=== PATIENT | female | born 1940 | race African-American/Black ===

== ENCOUNTER 2017-11-06 11:50 | Inpatient (IN) | payer OTHER ==
[2017-11-06 12:16] VITALS: BMI 32.5
--- NOTE | 2017-11-06 13:12 | PDOC ---
History of Present Illness - General Chief Complaint: Seizure Stated Complaint: Seizure Time Seen by Provider: 11/06/17 12:33 - History of Present Illness Initial Comments: patient is a 76 year old female, with a significant past medical history of HTN , COPD, schizophrenia, DM1, seizure disorder, who presents to the emergency department after seizure at [facility] this AM. Pt with prior seizure disorder, currently on Diastat and keppra. Unable to obtain extensive hx as pt remains disoriented and lethargic in post-ictal state. Pt states she remembers getting up in the AM and eating breakfast, but cannot recall any other events from AM. Denies any pain or new neuro symptoms. 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 Pt noted to be hypoxic to low 80s in field, placed on NRB with correction to 100% sats. Per nursing staff at [facility], pt normally well controlled on regimen of keppra/ diastat. Recently had breakthrough generalized tonic-clonic seizure yesterday, lasting 3-4 mins with no tongue biting or urinary incontinence. Pt with similar seizure this morning at 11AM, with no noted emesis, incontinence or tongue biting. Pt compliant with all meds; keppra increased from 500 BID to 750 BID overnight due to breakthrough seizure. Per nursing, pt with no infectious symptoms. Unable to determine Pt's neurologist. No noted recent trauma. Patient denies chest pain, shortness of breath, headache or dizziness. Denies fever, chills, nausea, vomiting, diarrhea and constipation. Denies dysuria, frequency, urgency and hematuria. Allergies: levaquin, motrin, penicillin Past surgical history: Unknown Social History: Unknown 11/06/17 13:11 Past History - Past Medical History Allergies/Adverse Reactions: Allergies Allergy/AdvReac Type Severity Reaction Status Date / Time ibuprofen [From Motrin] Allergy Verified 11/06/17 13:53 levofloxacin [From Levaquin] Allergy Verified 11/06/17 13:53 Penicillins Allergy Verified 11/06/17 13:53 Home Medications: Ambulatory Orders Acetaminophen [Pain Relief] 650 mg PO HS 11/06/17 Benztropine Mesylate 1 mg PO BID 11/06/17 Beta-Carotene(A) W-C and E/Min [Ocuvite (Nf) -] 1 tab PO DAILY 11/06/17 Ca/D3/Mag Ox/Zinc/Tray Casting Machine Operator/Shaggy/Bor [Calcium 600-D3 Plus Caplet] 1 each PO BID Carbidopa/Levodopa 25/100 [Sinemet 25/100 -] 1 each PO TID 11/06/17 Collagenase Clostridium Hist. [Santyl] 250 units TP DAILY PRN 11/06/17 Diazepam [Diastat Acudial] 10 mg RC QID 11/06/17 Epoetin Vinod [Procrit] 40,000 unit IJ WEEKLY 11/06/17 Ferrous Sulfate 325 mg PO DAILY 11/06/17 Fluticasone/Salmeterol [Advair 250-50 Diskus] 1 puff IH BID 11/06/17 Furosemide [Lasix -] 40 mg PO DAILY 11/06/17 Haloperidol Decanoate [Haldol Decanoate 50] 50 mg IM MONTHLY 11/06/17 Insulin Lispro [Humalog] 100 unit SQ ASDIR 11/06/17 Ranitidine [Zantac -] 150 mg PO BID 11/06/17 Sennosides/Docusate Sodium [Senna-Docusate Sodium Tablet] 2 tab PO BID 11/06/17 Simvastatin 20 mg PO HS 11/06/17 Vit A/Vitamin D3/E/Aloe V/Zinc [Periguard Ointment] 100 gm TP ASDIR 11/06/17 levETIRAcetam [Keppra -] 250 mg PO BID 11/06/17 levETIRAcetam [Keppra -] 500 mg PO BID 11/06/17 CVA: Yes COPD: Yes HTN: Yes Psychiatric Problems: Yes (schizophrenia) Seizures: Yes - Immunization History Immunization Up to Date: Yes - Suicide/Smoking/Psychosocial Hx Smoking History: Unknown if ever smoked Have you smoked in the past 12 months: No Information on smoking cessation initiated: No Hx Alcohol Use: No Drug/Substance Use Hx: No Substance Use Type: None Review of Systems - Review of Systems Comments:: Limited due to mental status GENERAL/CONSTITUTIONAL: No fever or chills. No weakness. HEAD, EYES, EARS, NOSE AND THROAT: No change in vision. CARDIOVASCULAR: No chest pain or shortness of breath RESPIRATORY: No cough GASTROINTESTINAL: No nausea, vomiting, diarrhea GENITOURINARY: No dysuria NEUROLOGIC: +LOC; no FNDs 11/06/17 13:11 *Physical Exam - Vital Signs Last Vital Signs Temp Pulse Resp BP Pulse Ox 96.8 F L 85 16 137/77 100 11/06/17 11:50 11/06/17 11:50 11/06/17 11:50 11/06/17 11:50 11/06/17 11:50 - Physical Exam Comments: GENERAL: Elderly woman, A&Ox2, in no acute distress, very somnolent HEAD: No signs of trauma, normocephalic, atraumatic. Dried foodstuff noted at L labial fold. EYES: PERRLA, EOMI, sclera anicteric, conjunctiva clear ENT: Auricles normal inspection, hearing grossly normal, nares patent, oropharynx clear without exudates. Moist mucosa NECK: Normal ROM, supple, no lymphadenopathy, JVD, or masses LUNGS: No distress, speaks full sentences, clear to auscultation bilaterally HEART: Regular rate and rhythm, normal S1 and S2, no murmurs, rubs or gallops, peripheral pulses normal and equal bilaterally. ABDOMEN: Soft, nontender, normoactive bowel sounds. No guarding, no rebound. No masses EXTREMITIES : Normal inspection, Normal range of motion, no edema. No clubbing or cyanosis. NEUROLOGICAL: Difficult to perform given MS. Cranial nerves II through XII grossly intact. Decreased palpebral strength in L eye. 3/5 strength in L technical marketing consultant, arm flexion/extension at biceps. 5/5 strength grossly in LEs. Moderately delayed speech. 11/06/17 13:11 ED Treatment Course - LABORATORY CBC & Chemistry Diagram: 11/12/17 05:30 11/10/17 11:40 Medical Decision Making - Medical Decision Making 76 year old female, with a significant past medical history of HTN, COPD, schizophrenia, DM1, seizure disorder, who presents to the emergency department after seizure at [facility] this AM. DDX for breakthrough seizure includes medication noncompliance, infectious etiology, trauma, metabolic derangement. Plan: - obtain collateral from [facility] - cbc, cmp, lactic acid, PT/INR, blood cultures - UA - CXR, EKG - Keppra level - Cardiac monitoring, pulse ox - Non con CT head 11/06/17 13:49 UA + for 3+ leuk esterase, WBCs; Hgb 8.8, Cr ; no further episodes of seizure; ordered for Rocephin 1g x1; discussed case with Dr. Ferreira, will admit to non- cardiac telemetry 11/06/17 17:[address] negative for acute pathology 11/06/17 17:12 *DC/Admit/Observation/Transfer Diagnosis at time of Disposition: Seizure - Discharge Dispostion Disposition: [facility]ISON FACILITY - Referrals - Patient Instructions - Post Discharge Activity
[2017-11-06 13:59] LABS: HEMOGLOBIN 8.8 GM/dL (10.7-15.3); MCHC 31.9 g/dl (32.0-36.0); WHITE BLOOD COUNT 7.3 K/mm3 (4.0-10.0)
[2017-11-06 14:05] LABS: BASO % 0.8 % (0-2.0); EOS % 1.1 % (0-4.5); HEMATOCRIT 27.7 % (32.4-45.2); LYMPH % 19.1 % (8-40); MCH 25.3 pg (25.7-33.7); MEAN CELL VOLUME 79.4 fl (80-96); MEAN PLT VOLUME 8.1 fl (7.5-11.1); MONO % 6.4 % (3.8-10.2); NEUT % 72.6 % (42.8-82.8); PLATELET COUNT 288 K/MM3 (134-434); RBC 3.49 M/mm3 (3.60-5.2); RDW 20.6 % (11.6-15.6)
[2017-11-06 14:07] LABS: ADD RBC MORPHOLOGY YES
[2017-11-06 14:21] LABS: URINE APPEARANCE SLCLOUDY; URINE BILIRUBIN NEGATIVE (<2.0 mg/dL); URINE BLOOD 2+ (NEGATIVE); URINE COLOR YELLOW; URINE GLUCOSE (UA) NEGATIVE (NEGATIVE); URINE KETONE NEGATIVE (NEGATIVE); URINE NITRITE POSITIVE (NEGATIVE); URINE UROBILINOGEN NEGATIVE mg/dL (0.2-1.0)
[2017-11-06 14:23] LABS: ALK PHOS 97 U/L (45-117); ANION GAP 5 (8-16); BILIRUBIN,TOTAL 0.3 mg/dL (0.2-1.0); BLOOD UREA NITROGEN 26 mg/dL (7-18); CALCIUM 9.3 mg/dL (8.5-10.1); CHLORIDE 103 mmol/L (98-107); CO2 33 mmol/L (21-32); CREATININE 1.8 mg/dL (0.55-1.02); GLUCOSE,RANDOM 108 mg/dL (74-106); POTASSIUM 4.3 mmol/L (3.5-5.1); SGOT/AST 7 U/L (15-37); SGPT/ALT < 6 U/L (12-78); SODIUM 141 mmol/L (136-145)
[2017-11-06 14:26] LABS: URINE LEUK ESTERASE 3+ (NEGATIVE); URINE PROTEIN 2+ (NEGATIVE)
[2017-11-06 14:29] LABS: CALCIUM OXALATE CRYSTALS RARE /hpf (NONE SEEN); EPI CELLS FEW /HPF (FEW); URINE BACTERIA MODERATE /hpf (NONE SEEN); URINE MUCUS RARE
[2017-11-06 14:34] LABS: ANISOCYTOSIS 2+
[2017-11-06 14:35] LABS: PLATELET ESTIMATE ADEQUATE
[2017-11-06 14:36] LABS: INR 1.04 (0.82-1.09); PROTHROMBIN TIME (PATIENT) 11.7 SEC (9.7-13.0)
--- NOTE | 2017-11-06 15:32 | PDOC ---
Attending Attestation - Resident Resident Name: Dylon Crowe - ED Attending Attestation I have performed the following: I have examined & evaluated the patient, The case was reviewed & discussed with the resident, I agree w/resident's findings & plan, Exceptions are as noted - HPI HPI: 11/06/17 15:29 "The patient is a 76 year old female with a significant PMH of seizures (on Keppra & Diazepam), CVA with residual LUE weakness, COPD, HTN, diabetes and who presents to the emergency department from [facility] via EMS for evaluation of seizure this morning prior to arrival. As per [facility] staff, the patient had a seizure yesterday which lasted about 4 minutes, with no associated tongue biting or incontinence. They report she had a similar seizure this morning at about 11AM with no associated tongue biting or incontinence. They state she has been compliant with her medications and is typically well controlled. The patient states she only remembers getting up in the morning and eating breakfast. Pt denies any recent F/C. Denies N/V/D/abdominal pain. Denies dysuria. Denies CP/SOB. Allergies: NKA PCP: Dr. Addison Barrow " - Physicial Exam PE: 11/06/17 15:30 "GENERAL: Awake, alert, and fully oriented, in no acute distress. HEAD: No signs of trauma EYES: PERRLA, EOMI, sclera anicteric, conjunctiva clear ENT: Auricles normal inspection, hearing grossly normal, nares patent, oropharynx clear without exudates. Moist mucosa NECK: Nontender, no stepoffs, Normal ROM, supple, no lymphadenopathy, JVD, or masses LUNGS: Breath sounds equal, clear to auscultation bilaterally. No wheezes, and no crackles HEART: Regular rate and rhythm, normal S1 and S2, no murmurs, rubs or gallops ABDOMEN: Soft, nontender, normoactive bowel sounds. No guarding, no rebound. No masses EXTREMITIES: Normal range of motion, no edema. No clubbing or cyanosis. No cords , erythema, or tenderness NEUROLOGICAL: Cranial nerves II through XII intact. 5/5 strength and sensation in all extremities, Normal speech, normal gait, normal cerebellar function SKIN: Warm, Dry, normal turgor, no rashes or lesions noted. " - Medical Decision Making 11/06/17 15:31 76 F with increased seizure frequency with reported compliance with AEDs. Will evaluate for infectious process and metabolic derangement. Also r/o ICH with head CT. - Labs, UA, UCx - CXR - CT head
[2017-11-06] MEDS ORDERED: CEFTRIAXONE 1 GM in DEXTROSE 5%-WATER - 100 ML IVPB ONE (15:40)
[2017-11-06] MEDS ORDERED: CEFTRIAXONE 1 GM/50 ML BAG ONE (15:47)
[2017-11-06] MEDS: SODIUM CHLORIDE 1,000 ML IV SCH (17:35)
--- NOTE | 2017-11-06 20:27 | HP ---
Admitting History and Physical - Primary Care Physician PCP: Shari Ferreira - Smoking History Smoking history: Unknown if ever smoked Have you smoked in the past 12 months: No - Alcohol/Substance Use Hx Alcohol Use: No Home Medications - Allergies Allergies/Adverse Reactions: Allergies Allergy/AdvReac Type Severity Reaction Status Date / Time ibuprofen [From Motrin] Allergy Verified 11/06/17 13:53 levofloxacin [From Levaquin] Allergy Verified 11/06/17 13:53 Penicillins Allergy Verified 11/06/17 13:53 - Home Medications Home Medications: Ambulatory Orders Acetaminophen [Pain Relief] 650 mg PO HS 11/06/17 Benztropine Mesylate 1 mg PO BID 11/06/17 Beta-Carotene(A) W-C and E/Min [Ocuvite (Nf)] 1 tab PO DAILY 11/06/17 Ca/D3/Mag Ox/Zinc/Medical Record Librarians Teacher/Shaggy/Bor [Calcium 600+D3 Plus Caplet] 1 each PO BID Carbidopa/Levodopa 25/100 [Sinemet 25/100 -] 1 each PO TID 11/06/17 Collagenase Clostridium Hist. [Santyl] 250 units TP DAILY PRN 11/06/17 Diazepam [Diastat Acudial] 10 mg RC QID 11/06/17 Epoetin Vinod [Procrit] 40,000 unit IJ WEEKLY 11/06/17 Ferrous Sulfate 325 mg PO DAILY 11/06/17 Fluticasone/Salmeterol [Advair 250-50 Diskus] 1 puff IH BID 11/06/17 Furosemide [Lasix -] 40 mg PO DAILY 11/06/17 Haloperidol Decanoate [Haldol Decanoate 50] 50 mg IM MONTHLY 11/06/17 Insulin Lispro [Humalog] 100 unit SQ ASDIR 11/06/17 Ranitidine [Zantac -] 150 mg PO BID 11/06/17 Sennosides/Docusate Sodium [Senna-Docusate Sodium Tablet] 2 tab PO BID 11/06/17 Simvastatin 20 mg PO HS 11/06/17 Vit A/Vitamin D3/E/Aloe V/Zinc [Periguard Ointment] 100 gm TP ASDIR 11/06/17 levETIRAcetam [Keppra -] 250 mg PO BID 05/28/18 levETIRAcetam [Keppra -] 500 mg PO BID 11/06/17 Physical Examination Vital Signs: Vital Signs Temperature 96.8 F L 11/06/17 11:50 Pulse Rate 88 11/06/17 19:25 Respiratory Rate 17 11/06/17 19:25 Blood Pressure 127/61 11/06/17 19:25 O2 Sat by Pulse Oximetry (%) 100 11/06/17 19:25 Labs: CBC, BMP 11/06/17 13:23 11/06/17 13:23
--- NOTE | 2017-11-06 20:30 | HP ---
Admitting History and Physical - Primary Care Physician PCP: Shari Ferreira - Admission History of Present Illness: 76 year old female with a significant PMH of seizures (on Keppra & Diazepam), CVA with residual LUE weakness, COPD, HTN, diabetes and who presents to the emergency department from [facility] via EMS for evaluation of seizure this morning prior to arrival. As per [facility] staff, the patient had a seizure yesterday which lasted about 4 minutes, with no associated tongue biting or incontinence. They report she had a similar seizure this morning at about 11AM with no associated tongue biting or incontinence. They state she has been compliant with her medications and is typically well controlled. The patient states she only remembers getting up in the morning and eating breakfast. Pt denies any recent F/C. Denies N/V/D/abdominal pain. Denies dysuria. Denies CP/ SOB. 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 Cardiovascular: Yes: HTN Pulmonary: Yes: COPD Endocrine: Yes: Diabetes Mellitus - Smoking History Smoking history: Unknown if ever smoked Have you smoked in the past 12 months: No - Alcohol/Substance Use Hx Alcohol Use: No Home Medications - Allergies Allergies/Adverse Reactions: Allergies Allergy/AdvReac Type Severity Reaction Status Date / Time ibuprofen [From Motrin] Allergy Verified 11/06/17 13:53 levofloxacin [From Levaquin] Allergy Verified 11/06/17 13:53 Penicillins Allergy Verified 11/06/17 13:53 - Home Medications Home Medications: Ambulatory Orders Acetaminophen [Pain Relief] 650 mg PO HS 11/06/17 Benztropine Mesylate 1 mg PO BID 11/06/17 Beta-Carotene(A) W-C and E/Min [Ocuvite (Nf)] 1 tab PO DAILY 11/06/17 Ca/D3/Mag Ox/Zinc/Motorcoach Driver/Shaggy/Bor [Calcium 600+D3 Plus Caplet] 1 each PO BID Carbidopa/Levodopa 25/100 [Sinemet 25/100 -] 1 each PO TID 11/06/17 Collagenase Clostridium Hist. [Santyl] 250 units TP DAILY PRN 11/06/17 Diazepam [Diastat Acudial] 10 mg RC QID 11/06/17 Epoetin Vinod [Procrit] 40,000 unit IJ WEEKLY 11/06/17 Ferrous Sulfate 325 mg PO DAILY 11/06/17 Fluticasone/Salmeterol [Advair 250-50 Diskus] 1 puff IH BID 11/06/17 Furosemide [Lasix -] 40 mg PO DAILY 11/06/17 Haloperidol Decanoate [Haldol Decanoate 50] 50 mg IM MONTHLY 11/06/17 Insulin Lispro [Humalog] 100 unit SQ ASDIR 11/06/17 Ranitidine [Zantac -] 150 mg PO BID 11/06/17 Sennosides/Docusate Sodium [Senna-Docusate Sodium Tablet] 2 tab PO BID 11/06/17 Simvastatin 20 mg PO HS 11/06/17 Vit A/Vitamin D3/E/Aloe V/Zinc [Periguard Ointment] 100 gm TP ASDIR 11/06/17 levETIRAcetam [Keppra -] 250 mg PO BID 11/06/17 levETIRAcetam [Keppra -] 500 mg PO BID 11/06/17 Physical Examination Vital Signs: Vital Signs Temperature 96.8 F L 11/06/17 11:50 Pulse Rate 88 11/06/17 19:25 Respiratory Rate 17 11/06/17 19:25 Blood Pressure 127/61 11/06/17 19:25 O2 Sat by Pulse Oximetry (%) 100 11/06/17 19:25 Constitutional: Yes: No Distress HENT: Yes: Atraumatic Neck: Yes: Supple Cardiovascular: Yes: Regular Rate and Rhythm Respiratory: Yes: CTA Bilaterally Gastrointestinal: Yes: Normal Bowel Sounds Extremities: Yes: WNL Edema: No Peripheral Pulses WNL: Yes Peripheral Pulses: Right Radial: 0 Neurological: Yes: Alert, Oriented Labs: CBC, BMP 11/06/17 13:23 11/06/17 13:23 Problem List - Problems (1) UTI (urinary tract infection) Assessment/Plan: on iv abx cxs sent id on board Code(s): N39.0 - URINARY TRACT INFECTION, SITE NOT SPECIFIED (2) Seizure Assessment/Plan: on keppra neuro on board stable now Code(s): R56.9 - UNSPECIFIED CONVULSIONS Assessment/Plan Laboratory Tests 11/06/17 11/06/17 11/06/17 13:23 13:23 13:23 WBC 7.3 RBC 3.49 L Hgb 8.8 L Hct 27.7 L MCV 79.4 L MCH 25.3 L MCHC 31.9 L RDW 20.6 H Plt Count 288 MPV 8.1 Neutrophils % 72.6 Lymphocytes % 19.1 Monocytes % 6.4 Eosinophils % 1.1 Basophils % 0.8 Nucleated RBC % 0 Hypochromia 1+ Platelet Estimate Adequate Platelet Comment No clotting detected Polychromasia 1+ Anisocytosis 2+ Microcytosis 1+ Fragmented RBCs Occasional PT with INR 11.70 INR 1.04 Sodium 141 Potassium 4.3 Chloride 103 Carbon Dioxide 33 H Anion Gap 5 L BUN 26 H Creatinine 1.8 H Creat Clearance w eGFR 27.36 Random Glucose 108 H Lactic Acid Calcium 9.3 Total Bilirubin 0.3 AST 7 L ALT < 6 L Alkaline Phosphatase 97 Total Protein 7.0 Albumin 2.0 L Urine Color Urine Appearance Urine pH Ur Specific [place] Urine Protein Urine Glucose (UA) Urine Ketones Urine Blood Urine Nitrite Urine Bilirubin Urine Urobilinogen Ur Leukocyte Esterase Urine WBC (Auto) Urine RBC (Auto) Ur Epithelial Cells Calcium Oxalate Crystal Urine Bacteria Urine Mucus 11/06/17 11/06/17 13:30 14:10 WBC RBC Hgb Hct MCV MCH MCHC RDW Plt Count MPV Neutrophils % Lymphocytes % Monocytes % Eosinophils % Basophils % Nucleated RBC % Hypochromia Platelet Estimate Platelet Comment Polychromasia Anisocytosis Microcytosis Fragmented RBCs PT with INR INR Sodium Potassium Chloride Carbon Dioxide Anion Gap BUN Creatinine Creat Clearance w eGFR Random Glucose Lactic Acid 1.0 Calcium Total Bilirubin AST ALT Alkaline Phosphatase Total Protein Albumin Urine Color Yellow Urine Appearance Slcloudy Urine pH 5.0 Ur Specific [place] 1.013 Urine Protein 2+ H Urine Glucose (UA) Negative Urine Ketones Negative Urine Blood 2+ H Urine Nitrite Positive Urine Bilirubin Negative Urine Urobilinogen Negative Ur Leukocyte Esterase 3+ H Urine WBC (Auto) 80 Urine RBC (Auto) 15 Ur Epithelial Cells Few Calcium Oxalate Crystal Rare Urine Bacteria Moderate Urine Mucus Rare Active Medications Generic Name Dose Route Start Last Admin Trade Name Freq PRN Reason Stop Dose Admin Sodium Chloride 1,000 mls @ 100 mls/hr 11/06/17 17:15 11/06/17 17:35 Normal Saline - IV 100 mls/hr ASDIR LUIS A Administration Active Medications Generic Name Dose Route Start Last Admin Trade Name Freq PRN Reason Stop Dose Admin Benztropine Mesylate 1 mg 11/06/17 22:00 Cogentin - PO BID [facility] Carbidopa/Levodopa 1 each 11/06/17 22:00 Sinemet 25/100 - PO TID [facility] Collagenase applic 11/06/17 20:31 Santyl - TP DAILY PRN [facility] Diazepam 10 mg 11/06/17 22:00 Diastat Rectal Gel - RC QID [facility] Furosemide 40 mg 11/07/17 10:00 Lasix - PO DAILY [facility] Heparin Sodium (Porcine) 5,000 unit 11/06/17 22:00 Heparin - SQ BID [facility] Sodium Chloride 1,000 mls @ 100 mls/hr 11/06/17 17:15 11/06/17 17:35 Normal Saline - IV 100 mls/hr ASDIR [facility] Administration Insulin Aspart 1 vial 11/06/17 22:00 Novolog Vial Sliding Scale - SQ ACHS [facility] Protocol Levetiracetam 250 mg 11/06/17 22:00 Keppra - PO BID [facility] Non-Formulary Medication 1 puff 11/06/17 22:00 Fluticasone/Salmeterol [Advair 250-50 Diskus] IH BID [facility] Non-Formulary Medication 20 mg 11/06/17 22:00 Simvastatin [Simvastatin] PO HS [facility] Ranitidine HCl 150 mg 11/06/17 22:00 Zantac - PO BID [facility] Senna/Docusate Sodium 2 tablet 11/06/17 22:00 Pericolace - PO BID [facility]
[2017-11-06] MEDS ORDERED: COLLAGENASE CLOSTRIDIUM HIST. 30 GRAMS TUBE TP PRN (20:31)
[2017-11-06] MEDS ORDERED: diazePAM ACUDIAL 5-7.5-10 MG 1 EACH KIT RC SCH (22:00)
[2017-11-06] MEDS ORDERED: PATIENT'S OWN MEDICATION (NON-FORMULARY) (Simvastatin [Simvastatin] 20 MG) PO SCH (22:00)
[2017-11-06] MEDS ORDERED: ACETAMINOPHEN 650 MG/20.3 ML ORAL SOLUTION (CUPS) PO PRN (22:20)
[2017-11-06] MEDS: levETIRAcetam 250 MG TABLET (FP) PO SCH (22:30)
[2017-11-06] MEDS: ATORVASTATIN CA 10 MG TABLET (FP) PO SCH (22:30)
[2017-11-06] MEDS: SENNOSIDES/DOCUSATE COMBO (SENNA PLUS) TABLET (UD) PO SCH (22:30)
[2017-11-06] MEDS: RANITIDINE HCL 150 MG TABLET (FP) PO SCH (22:31)
[2017-11-06] MEDS: BUDESONIDE/FORMETEROL FUMARATE 80/4.5 mcg INHALER IH SCH (22:31)
[2017-11-06] MEDS: HEPARIN NA (PORCINE) 5,000 UNITS/ML 1ML VIAL SQ SCH (22:31)
[2017-11-06] MEDS: BENZTROPINE MESYLATE 1 MG TABLET (FP) PO SCH (22:33)
[2017-11-06] MEDS: INSULIN SLIDING SCALE (NOVOLOG) 1 VIAL SQ SCH (22:42)
[2017-11-06] MEDS: CARBIDOPA/LEVODOPA 25/100 TABLET (FP) PO SCH (23:00)
[2017-11-07] MEDS: CARBIDOPA/LEVODOPA 25/100 TABLET (FP) PO SCH ×3 (05:57→22:02)
[2017-11-07] MEDS: INSULIN SLIDING SCALE (NOVOLOG) 1 VIAL SQ SCH ×4 (06:07→21:34)
[2017-11-07] MEDS: SENNOSIDES/DOCUSATE COMBO (SENNA PLUS) TABLET (UD) PO SCH ×2 (09:03→21:26)
[2017-11-07] MEDS: RANITIDINE HCL 150 MG TABLET (FP) PO SCH ×2 (09:03→21:26)
[2017-11-07] MEDS: HEPARIN NA (PORCINE) 5,000 UNITS/ML 1ML VIAL SQ SCH ×2 (09:03→21:26)
[2017-11-07] MEDS: levETIRAcetam 250 MG TABLET (FP) PO SCH ×2 (09:03→21:26)
[2017-11-07] MEDS: BUDESONIDE/FORMETEROL FUMARATE 80/4.5 mcg INHALER IH SCH ×2 (09:04→21:26)
[2017-11-07] MEDS: BENZTROPINE MESYLATE 1 MG TABLET (FP) PO SCH ×2 (09:04→22:02)
[2017-11-07] MEDS: FUROSEMIDE 40 MG TABLET (FP) PO SCH (09:09)
[2017-11-07] MEDS ORDERED: INSULIN (NOVOLOG) ASPART 100 UNITS/ML 10ML VIAL ONE ×2 (11:56→21:32)
--- NOTE | 2017-11-07 13:34 | EKG ---
Test Reason : Blood Pressure : / mmHG Vent. Rate : 083 BPM Atrial Rate : 083 BPM P-R Int : 148 ms QRS Dur : 070 ms QT Int : 370 ms P-R-T Axes : 076 017 032 degrees QTc Int : 434 ms POOR DATA QUALITY, INTERPRETATION MAY BE ADVERSELY AFFECTED NORMAL SINUS RHYTHM NORMAL ECG NO PREVIOUS ECGS AVAILABLE Confirmed by MD Daljit, Juan ([id number]) on 11/07/2017 1:34:06 PM Referred By: Confirmed By:Juan Bocanegra MD
--- NOTE | 2017-11-07 13:42 | CON.ID ---
Consult Consult Specialty:: infectious diseases Reason for Consultation:: uti,seizures - History of Present Illness History of Present Illness: 76 year old female with a significant PMH of seizures ), CVA with residual LUE weakness, COPD, HTN, diabetes send from [facility] via EMS for evaluation of seizure this morning prior to arrival. As per [facility] staff, the patient had a seizure yesterday which lasted about 4 minutes, with no associated tongue biting or incontinence. They report she had a similar seizure this morning at about 11AM with no associated tongue biting or incontinence. They state she has been compliant with her medications and is typically well controlled. patient does not remember much and what happened Pt noted to be hypoxic to low 80s in field, placed on NRB with correction to 100 % sats. 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 Cardio/Vascular: Yes: HTN Pulmonary: Yes: COPD Endocrine: Yes: Diabetes Mellitus - Alcohol/Substance Use Hx Alcohol Use: No - Smoking History Smoking history: Unknown if ever smoked Have you smoked in the past 12 months: No Home Medications - Allergies Allergies/Adverse Reactions: Allergies Allergy/AdvReac Type Severity Reaction Status Date / Time ibuprofen [From Motrin] Allergy Verified 11/06/17 13:53 levofloxacin [From Levaquin] Allergy Verified 11/06/17 13:53 Penicillins Allergy Verified 11/06/17 13:53 - Home Medications Home Medications: Ambulatory Orders Acetaminophen [Pain Relief] 650 mg PO HS 11/06/17 Benztropine Mesylate 1 mg PO BID 11/06/17 Beta-Carotene(A) W-C and E/Min [Ocuvite (Nf)] 1 tab PO DAILY 11/06/17 Ca/D3/Mag Ox/Zinc/Metal Alloy Scientist/Shaggy/Bor [Calcium 600+D3 Plus Caplet] 1 each PO BID Carbidopa/Levodopa 25/100 [Sinemet 25/100 -] 1 each PO TID 11/06/17 Collagenase Clostridium Hist. [Santyl] 250 units TP DAILY PRN 11/06/17 Diazepam [Diastat Acudial] 10 mg RC QID 11/06/17 Epoetin Vinod [Procrit] 40,000 unit IJ WEEKLY 11/06/17 Ferrous Sulfate 325 mg PO DAILY 11/06/17 Fluticasone/Salmeterol [Advair 250-50 Diskus] 1 puff IH BID 11/06/17 Furosemide [Lasix -] 40 mg PO DAILY 11/06/17 Haloperidol Decanoate [Haldol Decanoate 50] 50 mg IM MONTHLY 11/06/17 Insulin Lispro [Humalog] 100 unit SQ ASDIR 11/06/17 Ranitidine [Zantac -] 150 mg PO BID 11/06/17 Sennosides/Docusate Sodium [Senna-Docusate Sodium Tablet] 2 tab PO BID 11/06/17 Simvastatin 20 mg PO HS 11/06/17 Vit A/Vitamin D3/E/Aloe V/Zinc [Periguard Ointment] 100 gm TP ASDIR 11/06/17 levETIRAcetam [Keppra -] 250 mg PO BID 11/06/17 levETIRAcetam [Keppra -] 500 mg PO BID 11/06/17 Review of Systems Unable to obtain ROS, reason: unable Physical Exam Vital Signs: Vital Signs Temperature 98.8 F 11/07/17 08:43 Pulse Rate 99 H 11/07/17 08:43 Respiratory Rate 20 11/07/17 08:43 Blood Pressure 121/59 11/07/17 08:43 O2 Sat by Pulse Oximetry (%) 100 11/07/17 08:43 Constitutional: Yes: No Distress, Calm Eyes: Yes: Conjunctiva Clear Cardiovascular: Yes: Regular Rate and Rhythm Respiratory: Yes: Regular, CTA Bilaterally Gastrointestinal: Yes: Normal Bowel Sounds, Soft Musculoskeletal: Yes: WNL Extremities: Yes: WNL Neurological: Yes: Alert, Other Psychiatric: Yes: Alert Labs: CBC, BMP 11/06/17 13:23 11/06/17 13:23 Imaging - Results Chest X-ray: Report Reviewed, Image Reviewed Cat Scan: Report Reviewed, Image Reviewed Assessment/Plan pt. with hx. of sz.d/o, cva in past. , now admitted with a seizurex1, breakthrough likley provoked by uti that she is being treated for. i think her condition might have also been provoked by some infectious factor patient has been started on ceftriaxone Problem List - Problems (1) UTI (urinary tract infection) Code(s): N39.0 - URINARY TRACT INFECTION, SITE NOT SPECIFIED (2) Seizure Code(s): R56.9 - UNSPECIFIED CONVULSIONS plan continue ceftriaxone await for cx reports rest continue current mgmt await neuro to see the patient
--- NOTE | 2017-11-07 14:59 | PN ---
Progress Note, Physician History of Present Illness: doing well - Current Medication List Current Medications: Active Medications Acetaminophen (Tylenol Oral Solution -) 650 mg PO Q6H PRN PRN Reason: FEVER Atorvastatin Calcium (Lipitor -) 10 mg PO HS [facility] Last Admin: 11/06/17 22:30 Dose: 10 mg Benztropine Mesylate (Cogentin -) 1 mg PO BID [facility] Last Admin: 11/07/17 09:04 Dose: 1 mg Budesonide/Formoterol Fumarate (Symbicort 80/4.5mcg -) 2 puff IH BID [facility] Last Admin: 11/07/17 09:04 Dose: 2 puff Carbidopa/Levodopa (Sinemet 25/100 -) 1 each PO TID [facility] Last Admin: 11/07/17 13:35 Dose: 1 each Furosemide (Lasix -) 40 mg PO DAILY [facility] Last Admin: 11/07/17 09:09 Dose: 40 mg Heparin Sodium (Porcine) (Heparin -) 5,000 unit SQ BID [facility] Last Admin: 11/07/17 09:03 Dose: 5,000 unit Sodium Chloride (Normal Saline -) 1,000 mls @ 100 mls/hr IV ASDIR [facility] Last Admin: 11/06/17 17:35 Dose: 100 mls/hr Ceftriaxone Sodium 1 gm/ (Dextrose) 100 mls @ 200 mls/hr IVPB DAILY [facility]; Protocol Insulin Aspart (Novolog Vial Sliding Scale -) 1 vial SQ ACHS [facility]; Protocol Last Admin: 11/07/17 11:57 Dose: 2 units Levetiracetam (Keppra -) 250 mg PO BID [facility] Last Admin: 11/07/17 09:03 Dose: 250 mg Ranitidine HCl (Zantac -) 150 mg PO BID [facility] Last Admin: 11/07/17 09:03 Dose: 150 mg Senna/Docusate Sodium (Pericolace -) 2 tablet PO BID [facility] Last Admin: 11/07/17 09:03 Dose: 2 tablet - Objective Vital Signs: Vital Signs Temperature 98.8 F 11/07/17 08:43 Pulse Rate 99 H 11/07/17 08:43 Respiratory Rate 20 11/07/17 08:43 Blood Pressure 121/59 11/07/17 08:43 O2 Sat by Pulse Oximetry (%) 100 11/07/17 08:43 Constitutional: Yes: No Distress HENT: Yes: Atraumatic Neck: Yes: Supple Cardiovascular: Yes: Regular Rate and Rhythm Respiratory: Yes: CTA Bilaterally Gastrointestinal: Yes: Normal Bowel Sounds Extremities: Yes: WNL Neurological: Yes: Alert, Oriented Labs: CBC, BMP 11/06/17 13:23 11/06/17 13:23 INR, PTT INR 1.04 (0.82-1.09) 11/06/17 13:23 Problem List - Problems (1) UTI (urinary tract infection) Assessment/Plan: on iv abx cxs sent Code(s): N39.0 - URINARY TRACT INFECTION, SITE NOT SPECIFIED (2) Seizure Assessment/Plan: on keppra stable Code(s): R56.9 - UNSPECIFIED CONVULSIONS (3) Diarrhea Assessment/Plan: will check c diff Code(s): R19.7 - DIARRHEA, UNSPECIFIED
[2017-11-07] MEDS ORDERED: cefTRIAXone SODIUM 1 GM VIAL ONE (16:51)
[2017-11-07] MEDS ORDERED: DEXTROSE 5%-WATER 100 ML IVPB ONE (16:51)
[2017-11-07] MEDS: CEFTRIAXONE 1 GM in DEXTROSE 5%-WATER 100 ML IVPB SCH (16:54)
[2017-11-07] MEDS: SODIUM CHLORIDE 1,000 ML IV SCH ×2 (17:39→21:22)
--- NOTE | 2017-11-07 17:53 | CON.NEURO ---
Consult Consult Specialty:: NEUROLOGY-JESSICA ORTA Reason for Consultation:: Seizure - History of Present Illness History of Present Illness: patient is a 76 year old female, with a significant past medical history of HTN , COPD, schizophrenia, DM1, seizure disorder, who presents to the emergency department after seizure at [facility] this AM. Pt with prior seizure disorder, currently on Diastat and keppra. Unable to obtain extensive hx as pt remains disoriented and lethargic in post-ictal state. Pt states she remembers getting up in the AM and eating breakfast, but cannot recall any other events from AM. Denies any pain or new neuro symptoms. 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 Pt noted to be hypoxic to low 80s in field, placed on NRB with correction to 100% sats. She has been bed bound, unclear since when but has bilat LE and right UE weakness as per nursing staff. On Keppra 750mg bid. Per nursing staff at [facility], pt normally well controlled on regimen of keppra/ diastat. Recently had breakthrough generalized tonic-clonic seizure yesterday, lasting 3-4 mins with no tongue biting or urinary incontinence. Pt with similar seizure this morning at 11AM, with no noted emesis, incontinence or tongue biting. Pt compliant with all meds; keppra increased from 500 BID to 750 BID overnight due to breakthrough seizure. Per nursing, pt with no infectious symptoms. Unable to determine Pt's neurologist. No noted recent trauma. Patient denies chest pain, shortness of breath, headache or dizziness. Denies fever, chills, nausea, vomiting, diarrhea and constipation. 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 Cardio/Vascular: Yes: HTN Pulmonary: Yes: COPD Endocrine: Yes: Diabetes Mellitus - Alcohol/Substance Use Hx Alcohol Use: No - Smoking History Smoking history: Unknown if ever smoked Have you smoked in the past 12 months: No Home Medications - Allergies Allergies/Adverse Reactions: Allergies Allergy/AdvReac Type Severity Reaction Status Date / Time ibuprofen [From Motrin] Allergy Verified 11/06/17 13:53 levofloxacin [From Levaquin] Allergy Verified 11/06/17 13:53 Penicillins Allergy Verified 11/06/17 13:53 - Home Medications Home Medications: Ambulatory Orders Acetaminophen [Pain Relief] 650 mg PO HS 11/06/17 Benztropine Mesylate 1 mg PO BID 11/06/17 Beta-Carotene(A) W-C and E/Min [Ocuvite (Nf)] 1 tab PO DAILY 11/06/17 Ca/D3/Mag Ox/Zinc/Applications Architect/Shaggy/Bor [Calcium 600+D3 Plus Caplet] 1 each PO BID Carbidopa/Levodopa 25/100 [Sinemet 25/100 -] 1 each PO TID 11/06/17 Collagenase Clostridium Hist. [Santyl] 250 units TP DAILY PRN 11/06/17 Diazepam [Diastat Acudial] 10 mg RC QID 11/06/17 Epoetin Vinod [Procrit] 40,000 unit IJ WEEKLY 11/06/17 Ferrous Sulfate 325 mg PO DAILY 11/06/17 Fluticasone/Salmeterol [Advair 250-50 Diskus] 1 puff IH BID 11/06/17 Furosemide [Lasix -] 40 mg PO DAILY 11/06/17 Haloperidol Decanoate [Haldol Decanoate 50] 50 mg IM MONTHLY 11/06/17 Insulin Lispro [Humalog] 100 unit SQ ASDIR 11/06/17 Ranitidine [Zantac -] 150 mg PO BID 11/06/17 Sennosides/Docusate Sodium [Senna-Docusate Sodium Tablet] 2 tab PO BID 11/06/17 Simvastatin 20 mg PO HS 11/06/17 Vit A/Vitamin D3/E/Aloe V/Zinc [Periguard Ointment] 100 gm TP ASDIR 11/06/17 levETIRAcetam [Keppra -] 250 mg PO BID 11/06/17 levETIRAcetam [Keppra -] 500 mg PO BID 11/06/17 Physical Exam-Neuro Vital Signs: Vital Signs Temperature 97.8 F 11/07/17 14:00 Pulse Rate 110 H 11/07/17 14:00 Respiratory Rate 21 11/07/17 14:00 Blood Pressure 111/62 11/07/17 14:00 O2 Sat by Pulse Oximetry (%) 100 11/07/17 08:43 Labs: CBC, BMP 11/06/17 13:23 11/06/17 13:23 INR, PTT INR 1.04 (0.82-1.09) 05/28/18 13:23 - Neuro Exam Level Of Consciousness: Yes: Alert, Oriented to Person Eyes: Yes: EDGARDO (Vision appears impaired in both eyes- finger counting only, old ) Speech: WNL Dominant Hand: Right Mini Mental Exam: Impaired stm/att/conc. Follows one step commands. Sitting bup in bed, being fed dinner. Cranial Nerves II-XII Intact: No (slight old diminished left nlf.) DTR's: 0 Left Achilles (bilat knee jerks-1+), 0 Right Achilles, 1+ Left Bicep, 1 + Right Bicep, 1+ Left Tricep, 1+ Right Tricep, 1+ Left Brachioradialis, 1+ Right Brachioradialis Babinski: Absent Response to light touch: Normal Response to pain prick: Normal Motor Strength: 3/5: Left Leg, Right Leg, 4/5: Left Arm, Right Arm (right hand with flex contracture) Gait: Other (unable to stand) Imaging - Results Cat Scan: Report Reviewed (no acute changes, extensive chronic microvascular isch. 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 with hx. of sz.d/o, cva in past. She is on Keppra 750mg bid, now admitted with a seizurex1, breakthrough likley provoked by uti that she is being treated for. Would cont. Keppra at current dose and treat uti as provoking factor. Thank you, Tran Arvizu MD
[2017-11-07] MEDS ORDERED: PT OWN MED DRAWER 7, Y5N ONE (21:18)
[2017-11-07] MEDS: ATORVASTATIN CA 10 MG TABLET (FP) PO SCH (21:26)
[2017-11-08] MEDS ORDERED: LORazepam 2 MG/ML SDV VIAL ONE (02:44)
--- NOTE | 2017-11-08 02:46 | HOSP ---
Subjective - Review of Symptoms Subjective: called by nursing to evaluate pt on behalf of Dr. Ferreira. pt with tonic-clonic seizures repeatedly, multiple episodes while being examined. b/l upper extremities and lower extremities with convulsions. When subsided, pt smiles on command, following simple commands to raise arm, denies pain. able to say her name clearly, says she is at home. Physical Examination Vital Signs: Vital Signs HR140's, BP 160's/70's. BGM 90's. rectal temp 97.8F Constitutional: Yes: Moderate Distress Eyes: Yes: Conjunctiva Clear, EOM Intact, PERRL. No: Ptosis HENT: Yes: Atraumatic, Normocephalic Neck: Yes: Supple, Trachea Midline Cardiovascular: Yes: Tachycardia Respiratory: Yes: CTA Bilaterally Gastrointestinal: Yes: Soft Edema: No Neurological: Yes: Oriented (x1 to self), Facial Droop (chronic, residual from previous stroke) Labs: CBC, BMP 11/06/17 13:23 11/06/17 13:23 Hospitalist Encounter Assessment: 76 yr old woman with dementia, schizophrenia, seizure d/o, diabetes being treated for UTI likely causing breakthrough seizures. chart reviewed. pt has been evaluated by Neurology, note indicates pt should be on 750mg po bid of keppra. current EMR order shows 250mg bid po. Current seizure likely from low dose of keppra stat ativan 2mg IVpush given and loading dose of keppra 1g ivpb ordered. Outcome: pt's HR decreased and tonic-clonic movements resolved post-ativan. Recommendations/Interventions: Primary, Dr. Ferreira to f.u in the AM for further assessment. Recommend changing Keppra dose from 250mg to 750mg po BID and f.u keppra level Visit type - Emergency Visit Emergency Visit: No - New Patient This patient is new to me today: Yes Date on this admission: 11/08/17 - Critical Care Critical Care patient: No
[2017-11-08] MEDS ORDERED: levETIRAcetam 500 MG/5 ML INJECTION VIAL IVPB ONE (02:52)
[2017-11-08] MEDS: INSULIN SLIDING SCALE (NOVOLOG) 1 VIAL SQ SCH ×4 (06:28→21:49)
[2017-11-08] MEDS: CARBIDOPA/LEVODOPA 25/100 TABLET (FP) PO SCH ×3 (06:45→21:46)
[2017-11-08] MEDS: SODIUM CHLORIDE 1,000 ML IV SCH ×2 (06:46→21:44)
[2017-11-08 07:26] LABS: BASO % 1.1 % (0-2.0); EOS % 1.5 % (0-4.5); HEMATOCRIT 23.1 % (32.4-45.2); HEMOGLOBIN 7.4 GM/dL (10.7-15.3); LYMPH % 21.9 % (8-40); MCH 25.7 pg (25.7-33.7); MCHC 32.1 g/dl (32.0-36.0); MEAN CELL VOLUME 79.8 fl (80-96); MEAN PLT VOLUME 8.1 fl (7.5-11.1); MONO % 6.5 % (3.8-10.2); PLATELET COUNT 258 K/MM3 (134-434); RBC 2.89 M/mm3 (3.60-5.2); RDW 20.6 % (11.6-15.6); WHITE BLOOD COUNT 10.1 K/mm3 (4.0-10.0)
[2017-11-08 07:47] LABS: CHLORIDE 110 mmol/L (98-107); POTASSIUM 3.6 mmol/L (3.5-5.1); SODIUM 143 mmol/L (136-145)
[2017-11-08 07:56] LABS: ALBUMIN 1.9 g/dl (3.4-5.0); ALK PHOS 88 U/L (45-117); ANION GAP 7 (8-16); BILIRUBIN,TOTAL 0.3 mg/dL (0.2-1.0); BLOOD UREA NITROGEN 24 mg/dL (7-18); CALCIUM 8.4 mg/dL (8.5-10.1); CO2 26 mmol/L (21-32); CREATININE 1.8 mg/dL (0.55-1.02); GLUCOSE,RANDOM 84 mg/dL (74-106); SGOT/AST 6 U/L (15-37); SGPT/ALT < 6 U/L (12-78); TOT PROT 6.3 g/dl (6.4-8.2)
[2017-11-08] MEDS ORDERED: DEXTROSE 5%-WATER 100 ML IVPB ONE (09:34)
[2017-11-08] MEDS ORDERED: cefTRIAXone SODIUM 1 GM VIAL ONE (09:34)
[2017-11-08] MEDS ORDERED: PT OWN MED DRAWER 7, Y5N ONE ×2 (09:37→21:36)
[2017-11-08] MEDS: HEPARIN NA (PORCINE) 5,000 UNITS/ML 1ML VIAL SQ SCH ×2 (10:18→21:44)
[2017-11-08] MEDS: SENNOSIDES/DOCUSATE COMBO (SENNA PLUS) TABLET (UD) PO SCH ×2 (10:19→21:45)
[2017-11-08] MEDS: levETIRAcetam 250 MG TABLET (FP) PO SCH ×2 (10:19→21:45)
[2017-11-08] MEDS: RANITIDINE HCL 150 MG TABLET (FP) PO SCH ×2 (10:19→21:45)
[2017-11-08] MEDS: FUROSEMIDE 40 MG TABLET (FP) PO SCH (10:20)
[2017-11-08] MEDS: BENZTROPINE MESYLATE 1 MG TABLET (FP) PO SCH ×2 (10:20→21:46)
[2017-11-08] MEDS: CEFTRIAXONE 1 GM in DEXTROSE 5%-WATER 100 ML IVPB SCH (10:21)
--- NOTE | 2017-11-08 14:09 | PN ---
Progress Note, Physician History of Present Illness: patient had tremors currently no issues 'cx results noted calm - Current Medication List Current Medications: Active Medications Acetaminophen (Tylenol Oral Solution -) 650 mg PO Q6H PRN PRN Reason: FEVER Atorvastatin Calcium (Lipitor -) 10 mg PO HS [facility] Last Admin: 11/07/17 21:26 Dose: 10 mg Benztropine Mesylate (Cogentin -) 1 mg PO BID [facility] Last Admin: 11/08/17 10:20 Dose: 1 mg Budesonide/Formoterol Fumarate (Symbicort 80/4.5mcg -) 2 puff IH BID [facility] Last Admin: 11/07/17 21:26 Dose: 2 puff Carbidopa/Levodopa (Sinemet 25/100 -) 1 each PO TID [facility] Last Admin: 11/08/17 06:45 Dose: 1 each Furosemide (Lasix -) 40 mg PO DAILY [facility] Last Admin: 11/08/17 10:20 Dose: 40 mg Heparin Sodium (Porcine) (Heparin -) 5,000 unit SQ BID [facility] Last Admin: 11/08/17 10:18 Dose: 5,000 unit Sodium Chloride (Normal Saline -) 1,000 mls @ 100 mls/hr IV ASDIR [facility]PL[facility]ED [facility] Last Admin: 11/08/17 06:46 Dose: 100 mls/hr Ceftriaxone Sodium 1 gm/ (Dextrose) 100 mls @ 200 mls/hr IVPB DAILY [facility]; Protocol Last Admin: 11/08/17 10:21 Dose: 200 mls/hr Insulin Aspart (Novolog Vial Sliding Scale -) 1 vial SQ ACHS [facility]PL[facility]; Protocol Last Admin: 11/08/17 06:28 Dose: Not Given Levetiracetam (Keppra -) 250 mg PO BID [facility] Last Admin: 11/08/17 10:19 Dose: 250 mg Ranitidine HCl (Zantac -) 150 mg PO BID [facility] Last Admin: 11/08/17 10:19 Dose: 150 mg Senna/Docusate Sodium (Pericolace -) 2 tablet PO BID [facility] Last Admin: 11/08/17 10:19 Dose: 2 tablet - Objective Vital Signs: Vital Signs Temperature 98 F 11/08/17 10:30 Pulse Rate 97 H 11/08/17 10:30 Respiratory Rate 20 11/08/17 10:30 Blood Pressure 108/43 11/08/17 10:30 O2 Sat by Pulse Oximetry (%) 98 11/07/17 21:00 Constitutional: Yes: No Distress, Calm Cardiovascular: Yes: S1, S2 Respiratory: Yes: Regular, CTA Bilaterally Gastrointestinal: Yes: Normal Bowel Sounds, Soft Musculoskeletal: Yes: WNL Extremities: Yes: WNL Neurological: Yes: Alert Labs: CBC, BMP 11/08/17 06:30 11/08/17 06:30 INR, PTT INR 1.04 (0.82-1.09) 11/06/17 13:23 Assessment/Plan Problem List - Problems (1) UTI (urinary tract infection) Code(s): N39.0 - URINARY TRACT INFECTION, SITE NOT SPECIFIED (2) Seizure Code(s): R56.9 - UNSPECIFIED CONVULSIONS plan continue ceftriaxone as per neuro rest continue current mgmt monitor for seizures
[2017-11-08] MEDS: BUDESONIDE/FORMETEROL FUMARATE 80/4.5 mcg INHALER IH SCH ×2 (16:11→21:52)
--- NOTE | 2017-11-08 18:48 | PN ---
Progress Note, Physician - Current Medication List Current Medications: Active Medications Acetaminophen (Tylenol Oral Solution -) 650 mg PO Q6H PRN PRN Reason: FEVER Atorvastatin Calcium (Lipitor -) 10 mg PO HS [facility] Last Admin: 11/07/17 21:26 Dose: 10 mg Benztropine Mesylate (Cogentin -) 1 mg PO BID [facility] Last Admin: 11/08/17 10:20 Dose: 1 mg Budesonide/Formoterol Fumarate (Symbicort 80/4.5mcg -) 2 puff IH BID [facility] Last Admin: 11/08/17 16:11 Dose: Not Given Carbidopa/Levodopa (Sinemet 25/100 -) 1 each PO TID [facility] Last Admin: 11/08/17 16:10 Dose: Not Given Furosemide (Lasix -) 40 mg PO DAILY [facility] Last Admin: 11/08/17 10:20 Dose: 40 mg Heparin Sodium (Porcine) (Heparin -) 5,000 unit SQ BID [facility] Last Admin: 11/08/17 10:18 Dose: 5,000 unit Sodium Chloride (Normal Saline -) 1,000 mls @ 100 mls/hr IV ASDIR [facility] Last Admin: 11/08/17 06:46 Dose: 100 mls/hr Ceftriaxone Sodium 1 gm/ (Dextrose) 100 mls @ 200 mls/hr IVPB DAILY [facility]; Protocol Last Admin: 11/08/17 10:21 Dose: 200 mls/hr Insulin Aspart (Novolog Vial Sliding Scale -) 1 vial SQ ACHS [facility]; Protocol Last Admin: 11/08/17 18:04 Dose: 2 units Levetiracetam (Keppra -) 250 mg PO BID [facility] Last Admin: 11/08/17 10:19 Dose: 250 mg Ranitidine HCl (Zantac -) 150 mg PO BID [facility] Last Admin: 11/08/17 10:19 Dose: 150 mg Senna/Docusate Sodium (Pericolace -) 2 tablet PO BID [facility] Last Admin: 11/08/17 10:19 Dose: 2 tablet - Objective Vital Signs: Vital Signs Temperature 97.8 F 11/08/17 16:29 Pulse Rate 98 H 11/08/17 16:29 Respiratory Rate 20 11/08/17 16:29 Blood Pressure 131/69 11/08/17 16:29 O2 Sat by Pulse Oximetry (%) 98 11/08/17 11:00 Constitutional: Yes: Calm HENT: Yes: Atraumatic Neck: Yes: Supple Cardiovascular: Yes: Regular Rate and Rhythm Respiratory: Yes: CTA Bilaterally Gastrointestinal: Yes: Normal Bowel Sounds Extremities: Yes: WNL Neurological: Yes: Alert, Oriented Labs: CBC, BMP 11/08/17 06:30 11/08/17 06:30 INR, PTT INR 1.04 (0.82-1.09) 11/06/17 13:23 Problem List - Problems (1) UTI (urinary tract infection) Assessment/Plan: on iv abx cxs noted Code(s): N39.0 - URINARY TRACT INFECTION, SITE NOT SPECIFIED (2) Seizure Assessment/Plan: on keppra stable Code(s): R56.9 - UNSPECIFIED CONVULSIONS (3) Diarrhea Assessment/Plan: will check c diff Code(s): R19.7 - DIARRHEA, UNSPECIFIED
[2017-11-08] MEDS: ATORVASTATIN CA 10 MG TABLET (FP) PO SCH (21:45)
[2017-11-09] MEDS: CARBIDOPA/LEVODOPA 25/100 TABLET (FP) PO SCH ×3 (06:43→23:06)
[2017-11-09] MEDS: INSULIN SLIDING SCALE (NOVOLOG) 1 VIAL SQ SCH ×4 (06:43→23:00)
[2017-11-09 10:09] LABS: HEMATOCRIT 21.5 % (32.4-45.2); WHITE BLOOD COUNT 6.8 K/mm3 (4.0-10.0)
[2017-11-09 10:12] LABS: MCH 24.6 pg (25.7-33.7); MCHC 31.3 g/dl (32.0-36.0); MEAN CELL VOLUME 78.8 fl (80-96); MEAN PLT VOLUME 8.1 fl (7.5-11.1); PLATELET COUNT 278 K/MM3 (134-434); RBC 2.73 M/mm3 (3.60-5.2); RDW 20.4 % (11.6-15.6)
[2017-11-09 10:23] LABS: HEMOGLOBIN 6.8 GM/dL (10.7-15.3)
[2017-11-09 10:24] LABS: BLOOD UREA NITROGEN 19 mg/dL (7-18)
[2017-11-09 10:26] LABS: ALBUMIN 1.7 g/dl (3.4-5.0); ANION GAP 7 (8-16); CALCIUM 8.3 mg/dL (8.5-10.1); CHLORIDE 112 mmol/L (98-107); CO2 25 mmol/L (21-32); GLUCOSE,RANDOM 83 mg/dL (74-106); POTASSIUM 3.5 mmol/L (3.5-5.1); SODIUM 144 mmol/L (136-145)
[2017-11-09 10:31] LABS: ALK PHOS 85 U/L (45-117); BILIRUBIN,TOTAL 0.2 mg/dL (0.2-1.0); CREATININE 1.7 mg/dL (0.55-1.02); SGOT/AST 8 U/L (15-37); SGPT/ALT < 6 U/L (12-78); TOT PROT 5.9 g/dl (6.4-8.2)
--- NOTE | 2017-11-09 16:45 | PN ---
Progress Note, Physician History of Present Illness: stable had twitching neuro on case - Current Medication List Current Medications: Active Medications Acetaminophen (Tylenol Oral Solution -) 650 mg PO Q6H PRN PRN Reason: FEVER Atorvastatin Calcium (Lipitor -) 10 mg PO HS [facility] Last Admin: 11/08/17 21:45 Dose: 10 mg Benztropine Mesylate (Cogentin -) 1 mg PO BID [facility] Last Admin: 11/08/17 21:46 Dose: 1 mg Budesonide/Formoterol Fumarate (Symbicort 80/4.5mcg -) 2 puff IH BID [facility] Last Admin: 11/08/17 21:52 Dose: 2 puff Carbidopa/Levodopa (Sinemet 25/100 -) 1 each PO TID [facility] Last Admin: 11/09/17 06:43 Dose: 1 each Furosemide (Lasix -) 40 mg PO DAILY [facility] Last Admin: 11/08/17 10:20 Dose: 40 mg Heparin Sodium (Porcine) (Heparin -) 5,000 unit SQ BID [facility] Last Admin: 11/08/17 21:44 Dose: 5,000 unit Sodium Chloride (Normal Saline -) 1,000 mls @ 100 mls/hr IV ASDIR [facility] Last Admin: 11/08/17 21:44 Dose: 100 mls/hr Ceftriaxone Sodium 1 gm/ (Dextrose) 100 mls @ 200 mls/hr IVPB DAILY [facility]; Protocol Last Admin: 11/08/17 10:21 Dose: 200 mls/hr Insulin Aspart (Novolog Vial Sliding Scale -) 1 vial SQ ACHS [facility]; Protocol Last Admin: 11/09/17 06:43 Dose: Not Given Levetiracetam (Keppra -) 250 mg PO BID [facility] Last Admin: 11/08/17 21:45 Dose: 250 mg Ranitidine HCl (Zantac -) 150 mg PO BID [facility] Last Admin: 11/08/17 21:45 Dose: 150 mg Senna/Docusate Sodium (Pericolace -) 2 tablet PO BID [facility] Last Admin: 11/08/17 21:45 Dose: 2 tablet - Objective Vital Signs: Vital Signs Temperature 98.4 F 11/09/17 14:30 Pulse Rate 83 11/09/17 14:30 Respiratory Rate 20 11/09/17 14:30 Blood Pressure 153/68 11/09/17 14:30 O2 Sat by Pulse Oximetry (%) 96 11/09/17 09:00 Constitutional: Yes: No Distress, Calm Cardiovascular: Yes: Regular Rate and Rhythm Respiratory: Yes: Regular, CTA Bilaterally Gastrointestinal: Yes: Normal Bowel Sounds, Soft Musculoskeletal: Yes: WNL Extremities: Yes: Other Neurological: Yes: Alert, Weakness (on left side), Other Labs: CBC, BMP 11/09/17 09:45 11/09/17 09:45 INR, PTT INR 1.04 (0.82-1.09) 11/06/17 13:23 Assessment/Plan Problem List - Problems (1) UTI (urinary tract infection) Code(s): N39.0 - URINARY TRACT INFECTION, SITE NOT SPECIFIED (2) Seizure Code(s): R56.9 - UNSPECIFIED CONVULSIONS plan continue ceftriaxone as per neuro rest continue current mgmt monitor for seizures
[2017-11-09] MEDS ORDERED: cefTRIAXone SODIUM 1 GM VIAL ONE ×2 (17:09→17:10)
[2017-11-09] MEDS ORDERED: DEXTROSE 5%-WATER 100 ML IVPB ONE (17:10)
[2017-11-09] MEDS: CEFTRIAXONE 1 GM in DEXTROSE 5%-WATER 100 ML IVPB SCH (17:19)
[2017-11-09] MEDS: BENZTROPINE MESYLATE 1 MG TABLET (FP) PO SCH ×2 (17:19→23:05)
[2017-11-09] MEDS: levETIRAcetam 250 MG TABLET (FP) PO SCH ×2 (17:20→23:01)
[2017-11-09] MEDS: HEPARIN NA (PORCINE) 5,000 UNITS/ML 1ML VIAL SQ SCH ×2 (17:20→19:52)
[2017-11-09] MEDS: SENNOSIDES/DOCUSATE COMBO (SENNA PLUS) TABLET (UD) PO SCH ×2 (17:21→23:05)
[2017-11-09] MEDS: FUROSEMIDE 40 MG TABLET (FP) PO SCH (17:21)
[2017-11-09] MEDS: RANITIDINE HCL 150 MG TABLET (FP) PO SCH ×2 (17:21→23:07)
[2017-11-09] MEDS: BUDESONIDE/FORMETEROL FUMARATE 80/4.5 mcg INHALER IH SCH ×2 (17:21→23:06)
--- NOTE | 2017-11-09 17:27 | PN ---
Progress Note, Physician History of Present Illness: seems patient had seizures yesterday currently sleeping more no fever more drowsy today - Current Medication List Current Medications: Active Medications Acetaminophen (Tylenol Oral Solution -) 650 mg PO Q6H PRN PRN Reason: FEVER Atorvastatin Calcium (Lipitor -) 10 mg PO HS [facility] Last Admin: 11/08/17 21:45 Dose: 10 mg Benztropine Mesylate (Cogentin -) 1 mg PO BID [facility] Last Admin: 11/09/17 17:19 Dose: Not Given Budesonide/Formoterol Fumarate (Symbicort 80/4.5mcg -) 2 puff IH BID [facility] Last Admin: 11/09/17 17:21 Dose: Not Given Carbidopa/Levodopa (Sinemet 25/100 -) 1 each PO TID [facility] Last Admin: 11/09/17 17:22 Dose: Not Given Furosemide (Lasix -) 40 mg PO DAILY [facility] Last Admin: 11/09/17 17:21 Dose: Not Given Heparin Sodium (Porcine) (Heparin -) 5,000 unit SQ BID [facility] Last Admin: 11/09/17 17:20 Dose: 5,000 unit Sodium Chloride (Normal Saline -) 1,000 mls @ 100 mls/hr IV ASDIR [facility] Last Admin: 11/08/17 21:44 Dose: 100 mls/hr Ceftriaxone Sodium 1 gm/ (Dextrose) 100 mls @ 200 mls/hr IVPB DAILY [facility]; Protocol Last Admin: 11/09/17 17:19 Dose: 200 mls/hr Insulin Aspart (Novolog Vial Sliding Scale -) 1 vial SQ ACHS [facility]; Protocol Last Admin: 11/09/17 17:22 Dose: Not Given Levetiracetam (Keppra -) 250 mg PO BID [facility] Last Admin: 11/09/17 17:20 Dose: Not Given Ranitidine HCl (Zantac -) 150 mg PO BID [facility] Last Admin: 11/09/17 17:21 Dose: Not Given Senna/Docusate Sodium (Pericolace -) 2 tablet PO BID [facility] Last Admin: 11/09/17 17:21 Dose: Not Given - Objective Vital Signs: Vital Signs Temperature 98.4 F 11/09/17 14:30 Pulse Rate 86 11/09/17 17:00 Respiratory Rate 20 11/09/17 17:00 Blood Pressure 143/72 11/09/17 17:00 O2 Sat by Pulse Oximetry (%) 96 11/09/17 09:00 Constitutional: Yes: Other Cardiovascular: Yes: S1, S2 Respiratory: Yes: Regular, CTA Bilaterally Gastrointestinal: Yes: Normal Bowel Sounds, Soft Musculoskeletal: Yes: WNL Extremities: Yes: Other Neurological: Yes: Other (drowsy) Psychiatric: Yes: Other Labs: CBC, BMP 11/09/17 09:45 11/09/17 09:45 INR, PTT INR 1.04 (0.82-1.09) 11/06/17 13:23 Assessment/Plan Problem List - Problems (1) UTI (urinary tract infection) Code(s): N39.0 - URINARY TRACT INFECTION, SITE NOT SPECIFIED (2) Seizure Code(s): R56.9 - UNSPECIFIED CONVULSIONS plan continue ceftriaxone as per neuro monitor seizures and mental status rest as per neuro
--- NOTE | 2017-11-09 18:44 | PN ---
Progress Note, Physician History of Present Illness: sleeping but wake up - Current Medication List Current Medications: Active Medications Acetaminophen (Tylenol Oral Solution -) 650 mg PO Q6H PRN PRN Reason: FEVER Atorvastatin Calcium (Lipitor -) 10 mg PO HS [facility] Last Admin: 11/08/17 21:45 Dose: 10 mg Benztropine Mesylate (Cogentin -) 1 mg PO BID [facility] Last Admin: 11/09/17 17:19 Dose: Not Given Budesonide/Formoterol Fumarate (Symbicort 80/4.5mcg -) 2 puff IH BID [facility] Last Admin: 11/09/17 17:21 Dose: Not Given Carbidopa/Levodopa (Sinemet 25/100 -) 1 each PO TID [facility] Last Admin: 11/09/17 17:22 Dose: Not Given Furosemide (Lasix -) 40 mg PO DAILY [facility] Last Admin: 11/09/17 17:21 Dose: Not Given Heparin Sodium (Porcine) (Heparin -) 5,000 unit SQ BID [facility] Last Admin: 11/09/17 17:20 Dose: 5,000 unit Sodium Chloride (Normal Saline -) 1,000 mls @ 100 mls/hr IV ASDIR [facility] Last Admin: 11/08/17 21:44 Dose: 100 mls/hr Ceftriaxone Sodium 1 gm/ (Dextrose) 100 mls @ 200 mls/hr IVPB DAILY [facility]; Protocol Last Admin: 11/09/17 17:19 Dose: 200 mls/hr Insulin Aspart (Novolog Vial Sliding Scale -) 1 vial SQ ACHS [facility]; Protocol Last Admin: 11/09/17 18:11 Dose: Not Given Levetiracetam (Keppra -) 250 mg PO BID [facility] Last Admin: 11/09/17 17:20 Dose: Not Given Ranitidine HCl (Zantac -) 150 mg PO BID [facility] Last Admin: 11/09/17 17:21 Dose: Not Given Senna/Docusate Sodium (Pericolace -) 2 tablet PO BID [facility] Last Admin: 11/09/17 17:21 Dose: Not Given - Objective Vital Signs: Vital Signs Temperature 97.8 F 11/09/17 18:25 Pulse Rate 86 11/09/17 17:00 Respiratory Rate 20 11/09/17 17:00 Blood Pressure 143/72 11/09/17 17:00 O2 Sat by Pulse Oximetry (%) 96 11/09/17 09:00 Constitutional: Yes: No Distress HENT: Yes: Atraumatic Neck: Yes: Supple Cardiovascular: Yes: Regular Rate and Rhythm Respiratory: Yes: Rhonchi Gastrointestinal: Yes: Normal Bowel Sounds Extremities: Yes: WNL Neurological: Yes: Alert, Oriented Labs: CBC, BMP 11/09/17 09:45 11/09/17 09:45 INR, PTT INR 1.04 (0.82-1.09) 11/06/17 13:23 Problem List - Problems (1) UTI (urinary tract infection) Assessment/Plan: on iv abx cxs noted Code(s): N39.0 - URINARY TRACT INFECTION, SITE NOT SPECIFIED (2) Seizure Assessment/Plan: on keppra stable Code(s): R56.9 - UNSPECIFIED CONVULSIONS (3) Diarrhea Assessment/Plan: c diff negative Code(s): R19.7 - DIARRHEA, UNSPECIFIED (4) Anemia Assessment/Plan: will transfus 2 units guaic stools Code(s): D64.9 - ANEMIA, UNSPECIFIED
[2017-11-09] MEDS: SODIUM CHLORIDE 1,000 ML IV SCH (19:00)
[2017-11-09] MEDS ORDERED: PT OWN MED DRAWER 7, Y5N ONE (23:00)
[2017-11-09] MEDS: ATORVASTATIN CA 10 MG TABLET (FP) PO SCH (23:05)
[2017-11-10] MEDS: INSULIN SLIDING SCALE (NOVOLOG) 1 VIAL SQ SCH ×4 (06:28→22:52)
[2017-11-10] MEDS ORDERED: PT OWN MED DRAWER 7, Y5N ONE ×2 (06:31→11:32)
[2017-11-10] MEDS: CARBIDOPA/LEVODOPA 25/100 TABLET (FP) PO SCH ×3 (06:31→22:51)
[2017-11-10] MEDS: BENZTROPINE MESYLATE 1 MG TABLET (FP) PO SCH ×2 (10:00→22:52)
[2017-11-10] MEDS: BUDESONIDE/FORMETEROL FUMARATE 80/4.5 mcg INHALER IH SCH ×3 (11:00→23:03)
[2017-11-10] MEDS ORDERED: DEXTROSE 5%-WATER 100 ML IVPB ONE (11:30)
[2017-11-10] MEDS ORDERED: cefTRIAXone SODIUM 1 GM VIAL ONE (11:30)
[2017-11-10] MEDS: SENNOSIDES/DOCUSATE COMBO (SENNA PLUS) TABLET (UD) PO SCH ×2 (11:39→22:51)
[2017-11-10] MEDS: FUROSEMIDE 40 MG TABLET (FP) PO SCH (11:39)
[2017-11-10] MEDS: CEFTRIAXONE 1 GM in DEXTROSE 5%-WATER 100 ML IVPB SCH (11:39)
[2017-11-10] MEDS: RANITIDINE HCL 150 MG TABLET (FP) PO SCH ×2 (11:40→22:51)
[2017-11-10 11:59] LABS: BASO % 0.7 % (0-2.0); EOS % 1.7 % (0-4.5); HEMATOCRIT 29.4 % (32.4-45.2); HEMOGLOBIN 9.5 GM/dL (10.7-15.3); LYMPH % 10.3 % (8-40); MCH 25.6 pg (25.7-33.7); MCHC 32.3 g/dl (32.0-36.0); MEAN CELL VOLUME 79.3 fl (80-96); MEAN PLT VOLUME 8.4 fl (7.5-11.1); MONO % 5.3 % (3.8-10.2); PLATELET COUNT 245 K/MM3 (134-434); RBC 3.71 M/mm3 (3.60-5.2); RDW 19.3 % (11.6-15.6); WHITE BLOOD COUNT 12.4 K/mm3 (4.0-10.0)
[2017-11-10 12:42] LABS: ALBUMIN 1.8 g/dl (3.4-5.0); ANION GAP 6 (8-16); BILIRUBIN,TOTAL 0.4 mg/dL (0.2-1.0); BLOOD UREA NITROGEN 16 mg/dL (7-18); CALCIUM 8.1 mg/dL (8.5-10.1); CHLORIDE 113 mmol/L (98-107); CO2 27 mmol/L (21-32); CREATININE 1.4 mg/dL (0.55-1.02); GLUCOSE,RANDOM 123 mg/dL (74-106); POTASSIUM 3.6 mmol/L (3.5-5.1); SGOT/AST 11 U/L (15-37); SGPT/ALT < 6 U/L (12-78); SODIUM 146 mmol/L (136-145); TOT PROT 6.3 g/dl (6.4-8.2)
[2017-11-10 12:43] LABS: ALK PHOS 92 U/L (45-117)
[2017-11-10] MEDS: SODIUM CHLORIDE 1,000 ML IV SCH ×2 (14:00→17:14)
[2017-11-10] MEDS: levETIRAcetam 250 MG TABLET (FP) PO SCH ×2 (14:50→22:51)
--- NOTE | 2017-11-10 15:49 | PN ---
Progress Note, Physician History of Present Illness: stable no new issues calmer more awake - Current Medication List Current Medications: Active Medications Acetaminophen (Tylenol Oral Solution -) 650 mg PO Q6H PRN PRN Reason: FEVER Atorvastatin Calcium (Lipitor -) 10 mg PO HS [facility] Last Admin: 11/09/17 23:05 Dose: 10 mg Benztropine Mesylate (Cogentin -) 1 mg PO BID [facility] Last Admin: 11/10/17 10:00 Dose: 1 mg Budesonide/Formoterol Fumarate (Symbicort 80/4.5mcg -) 2 puff IH BID [facility] Last Admin: 11/10/17 11:00 Dose: 2 puff Carbidopa/Levodopa (Sinemet 25/100 -) 1 each PO TID [facility] Last Admin: 11/10/17 14:51 Dose: 1 each Furosemide (Lasix -) 40 mg PO DAILY [facility] Last Admin: 11/10/17 11:39 Dose: 40 mg Sodium Chloride (Normal Saline -) 1,000 mls @ 100 mls/hr IV ASDIR [facility] Last Admin: 11/09/17 19:00 Dose: Not Given Ceftriaxone Sodium 1 gm/ (Dextrose) 100 mls @ 200 mls/hr IVPB DAILY [facility]; Protocol Last Admin: 11/10/17 11:39 Dose: 200 mls/hr Insulin Aspart (Novolog Vial Sliding Scale -) 1 vial SQ ACHS [facility]; Protocol Last Admin: 11/10/17 13:04 Dose: Not Given Levetiracetam (Keppra -) 250 mg PO BID [facility] Last Admin: 11/10/17 14:50 Dose: 250 mg Ranitidine HCl (Zantac -) 150 mg PO BID [facility] Last Admin: 11/10/17 11:40 Dose: 150 mg Senna/Docusate Sodium (Pericolace -) 2 tablet PO BID [facility] Last Admin: 11/10/17 11:39 Dose: 2 tablet - Objective Vital Signs: Vital Signs Temperature 98.3 F 11/10/17 15:17 Pulse Rate 77 11/10/17 15:17 Respiratory Rate 20 11/10/17 15:17 Blood Pressure 138/81 11/10/17 15:17 O2 Sat by Pulse Oximetry (%) 100 11/10/17 09:00 Constitutional: Yes: Calm Cardiovascular: Yes: S1, S2 Respiratory: Yes: Regular, CTA Bilaterally Gastrointestinal: Yes: Normal Bowel Sounds, Soft Extremities: Yes: Other Neurological: Yes: Weakness Labs: CBC, BMP 11/10/17 11:40 11/10/17 11:40 INR, PTT INR 1.04 (0.82-1.09) 11/06/17 13:23 Assessment/Plan Problem List - Problems (1) UTI (urinary tract infection) Code(s): N39.0 - URINARY TRACT INFECTION, SITE NOT SPECIFIED (2) Seizure Code(s): R56.9 - UNSPECIFIED CONVULSIONS plan continue ceftriaxone as per neuro monitor seizures and mental status rest as per team
--- NOTE | 2017-11-10 19:04 | PN ---
Progress Note, Physician - Current Medication List Current Medications: Active Medications Acetaminophen (Tylenol Oral Solution -) 650 mg PO Q6H PRN PRN Reason: FEVER Atorvastatin Calcium (Lipitor -) 10 mg PO HS [facility] Last Admin: 11/09/17 23:05 Dose: 10 mg Benztropine Mesylate (Cogentin -) 1 mg PO BID [facility] Last Admin: 11/10/17 10:00 Dose: 1 mg Budesonide/Formoterol Fumarate (Symbicort 80/4.5mcg -) 2 puff IH BID [facility] Last Admin: 11/10/17 11:00 Dose: 2 puff Carbidopa/Levodopa (Sinemet 25/100 -) 1 each PO TID [facility] Last Admin: 11/10/17 14:51 Dose: 1 each Furosemide (Lasix -) 40 mg PO DAILY [facility] Last Admin: 11/10/17 11:39 Dose: 40 mg Sodium Chloride (Normal Saline -) 1,000 mls @ 100 mls/hr IV ASDIR [facility] Last Admin: 11/10/17 17:14 Dose: Not Given Ceftriaxone Sodium 1 gm/ (Dextrose) 100 mls @ 200 mls/hr IVPB DAILY [facility]; Protocol Last Admin: 11/10/17 11:39 Dose: 200 mls/hr Insulin Aspart (Novolog Vial Sliding Scale -) 1 vial SQ ACHS [facility]; Protocol Last Admin: 11/10/17 17:12 Dose: 4 units Levetiracetam (Keppra -) 250 mg PO BID [facility] Last Admin: 11/10/17 14:50 Dose: 250 mg Ranitidine HCl (Zantac -) 150 mg PO BID [facility] Last Admin: 11/10/17 11:40 Dose: 150 mg Senna/Docusate Sodium (Pericolace -) 2 tablet PO BID [facility] Last Admin: 11/10/17 11:39 Dose: 2 tablet - Objective Vital Signs: Vital Signs Temperature 98 F 11/10/17 18:11 Pulse Rate 83 11/10/17 18:11 Respiratory Rate 18 11/10/17 18:11 Blood Pressure 154/79 11/10/17 18:11 O2 Sat by Pulse Oximetry (%) 100 11/10/17 09:00 Constitutional: Yes: No Distress HENT: Yes: Atraumatic Neck: Yes: Supple Cardiovascular: Yes: Regular Rate and Rhythm Respiratory: Yes: CTA Bilaterally Gastrointestinal: Yes: Normal Bowel Sounds Extremities: Yes: WNL Edema: No Neurological: Yes: Alert Labs: CBC, BMP 11/10/17 11:40 11/10/17 11:40 INR, PTT INR 1.04 (0.82-1.09) 11/06/17 13:23 Problem List - Problems (1) UTI (urinary tract infection) Assessment/Plan: on iv abx cxs noted Code(s): N39.0 - URINARY TRACT INFECTION, SITE NOT SPECIFIED (2) Seizure Assessment/Plan: on keppra stable Code(s): R56.9 - UNSPECIFIED CONVULSIONS (3) Diarrhea Assessment/Plan: c diff negative Code(s): R19.7 - DIARRHEA, UNSPECIFIED (4) Anemia Code(s): D64.9 - ANEMIA, UNSPECIFIED
[2017-11-10] MEDS: ATORVASTATIN CA 10 MG TABLET (FP) PO SCH (22:51)
[2017-11-11] MEDS ORDERED: PT OWN MED DRAWER 7, Y5N ONE ×4 (06:41→22:15)
[2017-11-11] MEDS: INSULIN SLIDING SCALE (NOVOLOG) 1 VIAL SQ SCH ×4 (07:10→22:37)
[2017-11-11] MEDS: CARBIDOPA/LEVODOPA 25/100 TABLET (FP) PO SCH ×3 (07:10→22:31)
[2017-11-11] MEDS ORDERED: cefTRIAXone SODIUM 1 GM VIAL ONE (09:27)
[2017-11-11] MEDS ORDERED: DEXTROSE 5%-WATER 100 ML IVPB ONE (09:27)
[2017-11-11] MEDS: levETIRAcetam 250 MG TABLET (FP) PO SCH ×2 (09:36→22:31)
[2017-11-11] MEDS: RANITIDINE HCL 150 MG TABLET (FP) PO SCH ×2 (09:37→22:31)
[2017-11-11] MEDS: SENNOSIDES/DOCUSATE COMBO (SENNA PLUS) TABLET (UD) PO SCH ×2 (09:37→22:33)
[2017-11-11] MEDS: FUROSEMIDE 40 MG TABLET (FP) PO SCH (09:37)
[2017-11-11] MEDS: BUDESONIDE/FORMETEROL FUMARATE 80/4.5 mcg INHALER IH SCH ×2 (09:38→22:33)
[2017-11-11] MEDS: CEFTRIAXONE 1 GM in DEXTROSE 5%-WATER 100 ML IVPB SCH (09:39)
[2017-11-11] MEDS: BENZTROPINE MESYLATE 1 MG TABLET (FP) PO SCH ×2 (09:43→22:32)
--- NOTE | 2017-11-11 13:50 | PN ---
Progress Note, Physician History of Present Illness: Pt remains afebrile/stable. Denies dysuria/abd pain/flank pain. No specific complaints. - Current Medication List Current Medications: Active Medications Acetaminophen (Tylenol Oral Solution -) 650 mg PO Q6H PRN PRN Reason: FEVER Atorvastatin Calcium (Lipitor -) 10 mg PO HS [facility] Last Admin: 11/10/17 22:51 Dose: 10 mg Benztropine Mesylate (Cogentin -) 1 mg PO BID [facility] Last Admin: 11/11/17 09:43 Dose: 1 mg Budesonide/Formoterol Fumarate (Symbicort 80/4.5mcg -) 2 puff IH BID [facility] Last Admin: 11/11/17 09:38 Dose: 2 puff Carbidopa/Levodopa (Sinemet 25/100 -) 1 each PO TID [facility] Last Admin: 11/11/17 07:10 Dose: 1 each Furosemide (Lasix -) 40 mg PO DAILY [facility] Last Admin: 11/11/17 09:37 Dose: 40 mg Ceftriaxone Sodium 1 gm/ (Dextrose) 100 mls @ 200 mls/hr IVPB DAILY [facility]; Protocol Last Admin: 11/11/17 09:39 Dose: 200 mls/hr Insulin Aspart (Novolog Vial Sliding Scale -) 1 vial SQ ACHS [facility]; Protocol Last Admin: 11/11/17 12:07 Dose: Not Given Levetiracetam (Keppra -) 250 mg PO BID [facility] Last Admin: 11/11/17 09:36 Dose: 250 mg Ranitidine HCl (Zantac -) 150 mg PO BID [facility] Last Admin: 11/11/17 09:37 Dose: 150 mg Senna/Docusate Sodium (Pericolace -) 2 tablet PO BID [facility] Last Admin: 11/11/17 09:37 Dose: 2 tablet - Objective Vital Signs: Vital Signs Temperature 97.9 F 11/11/17 07:53 Pulse Rate 72 11/11/17 07:53 Respiratory Rate 20 11/11/17 10:00 Blood Pressure 154/77 11/11/17 07:53 O2 Sat by Pulse Oximetry (%) 100 11/11/17 10:00 Constitutional: Yes: No Distress, Calm Cardiovascular: Yes: Regular Rate and Rhythm Respiratory: Yes: Regular Gastrointestinal: Yes: Normal Bowel Sounds, Soft Neurological: Yes: Alert Labs: CBC, BMP 11/10/17 11:40 11/10/17 11:40 INR, PTT INR 1.04 (0.82-1.09) 11/06/17 13:23 Microbiology 11/06/17 13:23 Blood - Peripheral Venous Blood Culture - Preliminary NO GROWTH OBTAINED AFTER 96 HOURS, INCUBATION TO CONTINUE FOR 1 DAYS. 11/06/17 13:23 Blood - Peripheral Venous Blood Culture - Preliminary NO GROWTH OBTAINED AFTER 96 HOURS, INCUBATION TO CONTINUE FOR 1 DAYS. 11/07/17 15:10 Stool Clostridium difficile Antigen (BOBBI) - Final 11/07/17 15:10 Stool Clostridium difficile Toxin Assay - Final 11/06/17 14:10 Urine - Urine Clean Catch Urine Culture - Final Klebsiella Pneumoniae Providencia Stuartii Problem List - Problems (1) Seizure Code(s): R56.9 - UNSPECIFIED CONVULSIONS (2) UTI (urinary tract infection) Code(s): N39.0 - URINARY TRACT INFECTION, SITE NOT SPECIFIED Assessment/Plan Klebsiella/Providencia UTI Seizure D.O wbc mildly elevated repeat cbc in am continue antibiotics for now
--- NOTE | 2017-11-11 15:35 | PN ---
Progress Note, Physician History of Present Illness: doing well - Current Medication List Current Medications: Active Medications Acetaminophen (Tylenol Oral Solution -) 650 mg PO Q6H PRN PRN Reason: FEVER Atorvastatin Calcium (Lipitor -) 10 mg PO HS [facility] Last Admin: 11/10/17 22:51 Dose: 10 mg Benztropine Mesylate (Cogentin -) 1 mg PO BID [facility] Last Admin: 11/11/17 09:43 Dose: 1 mg Budesonide/Formoterol Fumarate (Symbicort 80/4.5mcg -) 2 puff IH BID [facility] Last Admin: 11/11/17 09:38 Dose: 2 puff Carbidopa/Levodopa (Sinemet 25/100 -) 1 each PO TID [facility] Last Admin: 11/11/17 07:10 Dose: 1 each Furosemide (Lasix -) 40 mg PO DAILY [facility] Last Admin: 11/11/17 09:37 Dose: 40 mg Ceftriaxone Sodium 1 gm/ (Dextrose) 100 mls @ 200 mls/hr IVPB DAILY [facility]; Protocol Last Admin: 11/11/17 09:39 Dose: 200 mls/hr Insulin Aspart (Novolog Vial Sliding Scale -) 1 vial SQ ACHS [facility]; Protocol Last Admin: 11/11/17 12:07 Dose: Not Given Levetiracetam (Keppra -) 250 mg PO BID [facility] Last Admin: 11/11/17 09:36 Dose: 250 mg Ranitidine HCl (Zantac -) 150 mg PO BID [facility] Last Admin: 11/11/17 09:37 Dose: 150 mg Senna/Docusate Sodium (Pericolace -) 2 tablet PO BID [facility] Last Admin: 11/11/17 09:37 Dose: 2 tablet - Objective Vital Signs: Vital Signs Temperature 97.7 F 11/11/17 14:28 Pulse Rate 74 11/11/17 14:28 Respiratory Rate 20 11/11/17 14:28 Blood Pressure 124/63 11/11/17 14:28 O2 Sat by Pulse Oximetry (%) 100 11/11/17 10:00 Constitutional: Yes: No Distress HENT: Yes: Atraumatic Neck: Yes: Supple Cardiovascular: Yes: Regular Rate and Rhythm Respiratory: Yes: CTA Bilaterally Gastrointestinal: Yes: Normal Bowel Sounds Edema: No Peripheral Pulses WNL: Yes Labs: CBC, BMP 11/10/17 11:40 11/10/17 11:40 INR, PTT INR 1.04 (0.82-1.09) 11/06/17 13:23 Problem List - Problems (1) UTI (urinary tract infection) Assessment/Plan: on iv abx cxs noted cbc in am id to let us know if we can switch to po Code(s): N39.0 - URINARY TRACT INFECTION, SITE NOT SPECIFIED (2) Seizure Assessment/Plan: on keppra stable Code(s): R56.9 - UNSPECIFIED CONVULSIONS (3) Diarrhea Assessment/Plan: c diff negative Code(s): R19.7 - DIARRHEA, UNSPECIFIED (4) Anemia Assessment/Plan: will transfus 2 units guaic stools Code(s): D64.9 - ANEMIA, UNSPECIFIED
[2017-11-11] MEDS: ATORVASTATIN CA 10 MG TABLET (FP) PO SCH (22:31)
[2017-11-11] MEDS: HEPARIN NA (PORCINE) 5,000 UNITS/ML 1ML VIAL SQ SCH (22:32)
[2017-11-12] MEDS: CARBIDOPA/LEVODOPA 25/100 TABLET (FP) PO SCH ×3 (05:56→22:27)
[2017-11-12] MEDS: INSULIN SLIDING SCALE (NOVOLOG) 1 VIAL SQ SCH ×4 (06:05→22:27)
[2017-11-12 06:51] LABS: BASO % 0.6 % (0-2.0); EOS % 1.9 % (0-4.5); HEMATOCRIT 30.2 % (32.4-45.2); HEMOGLOBIN 9.9 GM/dL (10.7-15.3); LYMPH % 17.5 % (8-40); MCH 26.2 pg (25.7-33.7); MCHC 32.7 g/dl (32.0-36.0); MEAN CELL VOLUME 79.9 fl (80-96); MEAN PLT VOLUME 8.1 fl (7.5-11.1); MONO % 7.6 % (3.8-10.2); NEUT % 72.4 % (42.8-82.8); PLATELET COUNT 268 K/MM3 (134-434); RBC 3.78 M/mm3 (3.60-5.2); RDW 19.8 % (11.6-15.6)
[2017-11-12] MEDS ORDERED: cefTRIAXone SODIUM 1 GM VIAL ONE (08:45)
[2017-11-12] MEDS ORDERED: DEXTROSE 5%-WATER 100 ML IVPB ONE (08:45)
[2017-11-12] MEDS ORDERED: PT OWN MED DRAWER 7, Y5N ONE ×3 (08:45→22:07)
[2017-11-12] MEDS: SENNOSIDES/DOCUSATE COMBO (SENNA PLUS) TABLET (UD) PO SCH ×2 (09:18→22:26)
[2017-11-12] MEDS: HEPARIN NA (PORCINE) 5,000 UNITS/ML 1ML VIAL SQ SCH ×2 (09:18→22:26)
[2017-11-12] MEDS: FUROSEMIDE 40 MG TABLET (FP) PO SCH (09:18)
[2017-11-12] MEDS: RANITIDINE HCL 150 MG TABLET (FP) PO SCH ×2 (09:18→22:26)
[2017-11-12] MEDS: levETIRAcetam 250 MG TABLET (FP) PO SCH ×2 (09:18→22:26)
[2017-11-12] MEDS: BENZTROPINE MESYLATE 1 MG TABLET (FP) PO SCH ×2 (09:19→22:28)
[2017-11-12] MEDS: CEFTRIAXONE 1 GM in DEXTROSE 5%-WATER 100 ML IVPB SCH (09:20)
[2017-11-12] MEDS: BUDESONIDE/FORMETEROL FUMARATE 80/4.5 mcg INHALER IH SCH ×3 (09:22→22:39)
--- NOTE | 2017-11-12 15:16 | PN ---
Progress Note, Physician History of Present Illness: Pt states she feels well. Denies h/a, fever, chills, dysuria. - Current Medication List Current Medications: Active Medications Acetaminophen (Tylenol Oral Solution -) 650 mg PO Q6H PRN PRN Reason: FEVER Atorvastatin Calcium (Lipitor -) 10 mg PO HS [facility] Last Admin: 11/11/17 22:31 Dose: 10 mg Benztropine Mesylate (Cogentin -) 1 mg PO BID [facility] Last Admin: 11/12/17 09:19 Dose: 1 mg Budesonide/Formoterol Fumarate (Symbicort 80/4.5mcg -) 2 puff IH BID [facility] Last Admin: 11/12/17 09:22 Dose: 2 puff Carbidopa/Levodopa (Sinemet 25/100 -) 1 each PO TID [facility] Last Admin: 11/12/17 05:56 Dose: 1 each Furosemide (Lasix -) 40 mg PO DAILY [facility] Last Admin: 11/12/17 09:18 Dose: 40 mg Heparin Sodium (Porcine) (Heparin -) 5,000 unit SQ BID [facility] Last Admin: 11/12/17 09:18 Dose: 5,000 unit Ceftriaxone Sodium 1 gm/ (Dextrose) 100 mls @ 200 mls/hr IVPB DAILY [facility]; Protocol Last Admin: 11/12/17 09:20 Dose: 200 mls/hr Insulin Aspart (Novolog Vial Sliding Scale -) 1 vial SQ ACHS [facility]; Protocol Last Admin: 11/12/17 12:16 Dose: 6 units Levetiracetam (Keppra -) 250 mg PO BID [facility] Last Admin: 11/12/17 09:18 Dose: 250 mg Ranitidine HCl (Zantac -) 150 mg PO BID [facility] Last Admin: 11/12/17 09:18 Dose: 150 mg Senna/Docusate Sodium (Pericolace -) 2 tablet PO BID [facility] Last Admin: 11/12/17 09:18 Dose: 2 tablet - Objective Vital Signs: Vital Signs Temperature 98.2 F 11/12/17 09:47 Pulse Rate 91 H 11/12/17 09:47 Respiratory Rate 18 11/12/17 09:47 Blood Pressure 124/58 11/12/17 09:47 O2 Sat by Pulse Oximetry (%) 100 11/12/17 10:00 Constitutional: Yes: No Distress, Calm HENT: Yes: WNL Neck: Yes: Supple Cardiovascular: Yes: Regular Rate and Rhythm Respiratory: Yes: CTA Bilaterally Gastrointestinal: Yes: Normal Bowel Sounds, Soft Integumentary: Yes: WNL Psychiatric: Yes: Alert Labs: CBC, BMP 11/12/17 05:30 11/10/17 11:40 INR, PTT INR 1.04 (0.82-1.09) 11/06/17 13:23 Problem List - Problems (1) Seizure Code(s): R56.9 - UNSPECIFIED CONVULSIONS (2) UTI (urinary tract infection) Code(s): N39.0 - URINARY TRACT INFECTION, SITE NOT SPECIFIED Assessment/Plan Klebsiella/Providencia UTI Seizure D.O Leukocytosis clinically stable at this time - wbc normal today - plan switch to po antibiotics if remains stable
--- NOTE | 2017-11-12 21:56 | PN ---
Progress Note, Physician History of Present Illness: doing well - Current Medication List Current Medications: Active Medications Acetaminophen (Tylenol Oral Solution -) 650 mg PO Q6H PRN PRN Reason: FEVER Atorvastatin Calcium (Lipitor -) 10 mg PO HS [facility] Last Admin: 11/11/17 22:31 Dose: 10 mg Benztropine Mesylate (Cogentin -) 1 mg PO BID [facility] Last Admin: 11/12/17 09:19 Dose: 1 mg Budesonide/Formoterol Fumarate (Symbicort 80/4.5mcg -) 2 puff IH BID [facility] Last Admin: 11/12/17 09:22 Dose: 2 puff Carbidopa/Levodopa (Sinemet 25/100 -) 1 each PO TID [facility] Last Admin: 11/12/17 14:27 Dose: 1 each Furosemide (Lasix -) 40 mg PO DAILY [facility] Last Admin: 11/12/17 09:18 Dose: 40 mg Heparin Sodium (Porcine) (Heparin -) 5,000 unit SQ BID [facility] Last Admin: 11/12/17 09:18 Dose: 5,000 unit Ceftriaxone Sodium 1 gm/ (Dextrose) 100 mls @ 200 mls/hr IVPB DAILY [facility]; Protocol Last Admin: 11/12/17 09:20 Dose: 200 mls/hr Insulin Aspart (Novolog Vial Sliding Scale -) 1 vial SQ ACHS [facility]; Protocol Last Admin: 11/12/17 17:20 Dose: Not Given Levetiracetam (Keppra -) 250 mg PO BID [facility] Last Admin: 11/12/17 09:18 Dose: 250 mg Ranitidine HCl (Zantac -) 150 mg PO BID [facility] Last Admin: 11/12/17 09:18 Dose: 150 mg Senna/Docusate Sodium (Pericolace -) 2 tablet PO BID [facility] Last Admin: 11/12/17 09:18 Dose: 2 tablet - Objective Vital Signs: Vital Signs Temperature 98.2 F 11/12/17 15:25 Pulse Rate 87 11/12/17 15:25 Respiratory Rate 18 11/12/17 15:25 Blood Pressure 141/63 11/12/17 15:25 O2 Sat by Pulse Oximetry (%) 100 11/12/17 10:00 Constitutional: Yes: No Distress HENT: Yes: Atraumatic Neck: Yes: Supple Cardiovascular: Yes: Regular Rate and Rhythm Respiratory: Yes: CTA Bilaterally Gastrointestinal: Yes: Normal Bowel Sounds Extremities: Yes: WNL Edema: No Neurological: Yes: Alert, Oriented Labs: CBC, BMP 11/12/17 05:30 11/10/17 11:40 INR, PTT INR 1.04 (0.82-1.09) 11/06/17 13:23 Problem List - Problems (1) UTI (urinary tract infection) Assessment/Plan: on iv abx cxs noted cbc in am id to let us know if we can switch to po and which abx Code(s): N39.0 - URINARY TRACT INFECTION, SITE NOT SPECIFIED (2) Seizure Assessment/Plan: on keppra stable Code(s): R56.9 - UNSPECIFIED CONVULSIONS (3) Diarrhea Assessment/Plan: c diff negative Code(s): R19.7 - DIARRHEA, UNSPECIFIED (4) Anemia Assessment/Plan: will transfus 2 units guaic stools Code(s): D64.9 - ANEMIA, UNSPECIFIED
[2017-11-12] MEDS: ATORVASTATIN CA 10 MG TABLET (FP) PO SCH (22:26)
[2017-11-13] MEDS: INSULIN SLIDING SCALE (NOVOLOG) 1 VIAL SQ SCH ×3 (06:44→16:42)
[2017-11-13] MEDS ORDERED: PT OWN MED DRAWER 7, Y5N ONE ×3 (06:45→10:05)
[2017-11-13] MEDS: CARBIDOPA/LEVODOPA 25/100 TABLET (FP) PO SCH ×2 (06:46→15:14)
[2017-11-13] MEDS ORDERED: cefTRIAXone SODIUM 1 GM VIAL ONE (09:57)
[2017-11-13] MEDS ORDERED: DEXTROSE 5%-WATER 100 ML IVPB ONE (09:57)
[2017-11-13] MEDS: CEFTRIAXONE 1 GM in DEXTROSE 5%-WATER 100 ML IVPB SCH (10:02)
[2017-11-13] MEDS: levETIRAcetam 250 MG TABLET (FP) PO SCH (10:02)
[2017-11-13] MEDS: SENNOSIDES/DOCUSATE COMBO (SENNA PLUS) TABLET (UD) PO SCH (10:03)
[2017-11-13] MEDS: FUROSEMIDE 40 MG TABLET (FP) PO SCH (10:03)
[2017-11-13] MEDS: HEPARIN NA (PORCINE) 5,000 UNITS/ML 1ML VIAL SQ SCH (10:03)
[2017-11-13] MEDS: RANITIDINE HCL 150 MG TABLET (FP) PO SCH (10:03)
[2017-11-13] MEDS: BUDESONIDE/FORMETEROL FUMARATE 80/4.5 mcg INHALER IH SCH (10:04)
[2017-11-13] MEDS: BENZTROPINE MESYLATE 1 MG TABLET (FP) PO SCH (10:06)
--- NOTE | 2017-11-13 13:22 | PN ---
Progress Note, Physician History of Present Illness: sleepy hard to wake up clinical stable - Current Medication List Current Medications: Active Medications Acetaminophen (Tylenol Oral Solution -) 650 mg PO Q6H PRN PRN Reason: FEVER Atorvastatin Calcium (Lipitor -) 10 mg PO HS [facility] Last Admin: 11/12/17 22:26 Dose: 10 mg Benztropine Mesylate (Cogentin -) 1 mg PO BID [facility] Last Admin: 11/13/17 10:06 Dose: 1 mg Budesonide/Formoterol Fumarate (Symbicort 80/4.5mcg -) 2 puff IH BID [facility] Last Admin: 11/13/17 10:04 Dose: 2 puff Carbidopa/Levodopa (Sinemet 25/100 -) 1 each PO TID [facility] Last Admin: 11/13/17 06:46 Dose: 1 each Furosemide (Lasix -) 40 mg PO DAILY [facility] Last Admin: 11/13/17 10:03 Dose: 40 mg Heparin Sodium (Porcine) (Heparin -) 5,000 unit SQ BID [facility] Last Admin: 11/13/17 10:03 Dose: 5,000 unit Insulin Aspart (Novolog Vial Sliding Scale -) 1 vial SQ [facility]; Protocol Last Admin: 11/13/17 12:07 Dose: Not Given Levetiracetam (Keppra -) 250 mg PO BID [facility] Last Admin: 11/13/17 10:02 Dose: 250 mg Ranitidine HCl (Zantac -) 150 mg PO BID [facility] Last Admin: 11/13/17 10:03 Dose: 150 mg Senna/Docusate Sodium (Pericolace -) 2 tablet PO BID [facility] Last Admin: 11/13/17 10:03 Dose: 2 tablet - Objective Vital Signs: Vital Signs Temperature 97.7 F 11/13/17 09:00 Pulse Rate 82 11/13/17 09:00 Respiratory Rate 17 11/13/17 09:00 Blood Pressure 145/78 11/13/17 09:00 O2 Sat by Pulse Oximetry (%) 98 11/13/17 09:00 Constitutional: Yes: No Distress, Calm Cardiovascular: Yes: S1, S2 Respiratory: Yes: Regular, CTA Bilaterally Gastrointestinal: Yes: Normal Bowel Sounds, Soft Neurological: Yes: Other (sleepy) Labs: CBC, BMP 11/12/17 05:30 11/10/17 11:40 INR, PTT INR 1.04 (0.82-1.09) 11/06/17 13:23 Assessment/Plan Problem List - Problems (1) UTI (urinary tract infection) Code(s): N39.0 - URINARY TRACT INFECTION, SITE NOT SPECIFIED (2) Seizure Code(s): R56.9 - UNSPECIFIED CONVULSIONS plan will stop abx as per neuro monitor mental status rest as per the team
[2017-11-13 18:21] VITALS: BP 152/85; PULSE 81; TEMP 97.7
--- NOTE | 2017-11-13 18:55 | DS ---
Physical Examination Vital Signs: Vital Signs Temperature 97.7 F 11/13/17 18:19 Pulse Rate 81 11/13/17 18:19 Respiratory Rate 18 11/13/17 18:19 Blood Pressure 152/85 11/13/17 18:19 O2 Sat by Pulse Oximetry (%) 98 11/13/17 09:00 Constitutional: Yes: No Distress HENT: Yes: Atraumatic Neck: Yes: Supple Cardiovascular: Yes: Regular Rate and Rhythm Respiratory: Yes: CTA Bilaterally Gastrointestinal: Yes: Normal Bowel Sounds Extremities: Yes: WNL Neurological: Yes: Alert, Oriented Labs: CBC, BMP 11/12/17 05:30 11/10/17 11:40 Discharge Summary Reason For Visit: INTRACTABLE SEIZURE DISORDER Current Active Problems Anemia (Acute) Diarrhea (Acute) Seizure (Acute) UTI (urinary tract infection) (Acute) - Instructions - Home Medications Comprehensive Discharge Medication List: Ambulatory Orders Acetaminophen [Pain Relief] 650 mg PO HS 11/06/17 Benztropine Mesylate 1 mg PO BID 11/06/17 Beta-Carotene(A) W-C and E/Min [Ocuvite (Nf) -] 1 tab PO DAILY 11/06/17 Ca/D3/Mag Ox/Zinc/Crown Blocker/Shaggy/Bor [Calcium 600-D3 Plus Caplet] 1 each PO BID Carbidopa/Levodopa 25/100 [Sinemet 25/100 -] 1 each PO TID 11/06/17 Collagenase Clostridium Hist. [Santyl] 250 units TP DAILY PRN 11/06/17 Diazepam [Diastat Acudial] 10 mg RC QID 11/06/17 Epoetin Vinod [Procrit] 40,000 unit IJ WEEKLY 11/06/17 Ferrous Sulfate 325 mg PO DAILY 11/06/17 Fluticasone/Salmeterol [Advair 250-50 Diskus] 1 puff IH BID 11/06/17 Furosemide [Lasix -] 40 mg PO DAILY 11/06/17 Haloperidol Decanoate [Haldol Decanoate 50] 50 mg IM MONTHLY 11/06/17 Insulin Lispro [Humalog] 100 unit SQ ASDIR 11/06/17 Ranitidine [Zantac -] 150 mg PO BID 11/06/17 Sennosides/Docusate Sodium [Senna-Docusate Sodium Tablet] 2 tab PO BID 11/06/17 Simvastatin 20 mg PO HS 11/06/17 Vit A/Vitamin D3/E/Aloe V/Zinc [Periguard Ointment] 100 gm TP ASDIR 11/06/17 levETIRAcetam [Keppra -] 250 mg PO BID 11/06/17 levETIRAcetam [Keppra -] 500 mg PO BID 11/06/17 dc snf
== END 2017-11-13 20:16 | DRG 101 ==
LOC: JER 11:50 → JERBED 17:05 → J4S 20:44
PROVIDERS: ADMIT Internal Medicine; ATTEND Internal Medicine
DX: G40.909 Epilepsy, unspecified, not intractable, without status epilepticus (principal); I69.354 Hemiplegia and hemiparesis following cerebral infarction affecting left non-dominant side; N39.0 Urinary tract infection, site not specified; I10 Essential (primary) hypertension; J44.9 Chronic obstructive pulmonary disease, unspecified; F20.9 Schizophrenia, unspecified; Z79.4 Long term (current) use of insulin; R19.7 Diarrhea, unspecified; E11.9 Type 2 diabetes mellitus without complications; D64.9 Anemia, unspecified; B96.1 Klebsiella pneumoniae [K. pneumoniae] as the cause of diseases classified elsewhere; Z88.0 Allergy status to penicillin
CPT/HCPCS: 36415; 36430; 70450-TC; 71045-TC-FY; 80053; 81003; 81015; 82962; 83605; 85025; 85027; 85610; 86850; 86900; 86901; 86922; 87040; 87086; 87186; 87324; 87449; 93005; 93010; 99284-25; J1644; J7030; P9038; P9058

== ENCOUNTER 2018-10-18 07:38 | Emergency (ER) | payer OTHER ==
[2018-10-18 07:55] VITALS: BP 149/81; PULSE 88; TEMP 97.9; BMI 35.4
--- NOTE | 2018-10-18 08:20 | PDOC ---
History of Present Illness - General Chief Complaint: Injury Stated Complaint: FALL Time Seen by Provider: 10/18/18 08:16 History Source: Patient Exam Limitations: No Limitations - History of Present Illness Initial Comments: 77 yo F with a hx of HTN, osteoporosis, DM, dementia, and HLD [facility] Past History - Past Medical History Allergies/Adverse Reactions: Allergies Allergy/AdvReac Type Severity Reaction Status Date / Time ibuprofen [From Motrin] Allergy Verified 10/18/18 07:44 levofloxacin [From Levaquin] Allergy Verified 10/18/18 07:44 Penicillins Allergy Verified 10/18/18 07:44 Home Medications: Ambulatory Orders Acetaminophen [Pain Relief] 650 mg PO HS 11/06/17 Benztropine Mesylate 1 mg PO BID 11/06/17 Beta-Carotene(A) W-C and E/Min [Ocuvite (Nf) -] 1 tab PO DAILY 11/06/17 Ca/D3/Mag Ox/Zinc/[employer] Manager Architect/Shaggy/Bor [Calcium 600-D3 Plus Caplet] 1 each PO BID Carbidopa/Levodopa 25/100 [Sinemet 25/100 -] 1 each PO TID 11/06/17 Collagenase Clostridium Hist. [Santyl] 250 units TP DAILY PRN 11/06/17 Diazepam [Diastat Acudial] 10 mg RC QID 11/06/17 Epoetin Vinod [Procrit] 40,000 unit IJ WEEKLY 11/06/17 Ferrous Sulfate 325 mg PO DAILY 11/06/17 Fluticasone/Salmeterol [Advair 250-50 Diskus] 1 puff IH BID 11/06/17 Furosemide [Lasix -] 40 mg PO DAILY 11/06/17 Haloperidol Decanoate [Haldol Decanoate 50] 50 mg IM MONTHLY 11/06/17 Insulin Lispro [Humalog] 100 unit SQ [facility] 11/06/17 Ranitidine [Zantac -] 150 mg PO BID 11/06/17 Sennosides/Docusate Sodium [Senna-Docusate Sodium Tablet] 2 tab PO BID 11/06/17 Simvastatin 20 mg PO HS 11/06/17 Vit A/Vitamin D3/E/Aloe V/Zinc [Periguard Ointment] 100 gm TP ASDIR 11/06/17 levETIRAcetam [Keppra -] 250 mg PO BID 11/06/17 levETIRAcetam [Keppra -] 500 mg PO BID 11/06/17 Anemia: Yes CVA: Yes COPD: Yes Dementia: Yes Diabetes: Yes GI Disorders: Yes HTN: Yes Hypercholesterolemia: Yes Psychiatric Problems: Yes (schizophrenia) Seizures: Yes - Immunization History Immunization Up to Date: Yes - Suicide/Smoking/Psychosocial Hx Smoking History: Never smoked Have you smoked in the past 12 months: No Information on smoking cessation initiated: No Hx Alcohol Use: No Drug/Substance Use Hx: No Substance Use Type: None *Physical Exam - Vital Signs Last Vital Signs Temp Pulse Resp BP Pulse Ox 97.9 F 88 18 149/81 100 10/18/18 07:48 10/18/18 07:48 10/18/18 07:48 10/18/18 07:48 10/18/18 07:48 Procedures - Laceration/Wound Repair Left Upper Anterior Eye Wound Length: to 2.5 cm Wound Explored: clean Wound's Depth, Shape: superficial Irrigated w/ Saline: Yes Betadine Prep: Yes Anesthesia: 1% Lidocaine Amount of Anesthetic (ccs): 3 Wound Debrided: minimal Wound Repaired With: Sutures Suture Size/Type: 5:0 Number of Sutures: 6 Sterile Dressing Applied: Yes ED Treatment Course - LABORATORY CBC & Chemistry Diagram: 10/18/18 09:27 10/18/18 09:27 *DC/Admit/Observation/Transfer Diagnosis at time of Disposition: Fall Qualifiers: Encounter type: initial encounter Qualified Code(s): W19.XXXA - Unspecified fall, initial encounter - Discharge Dispostion Disposition: HOME Decision to Admit order: No - Referrals Referrals: Stefan Amin MD [Primary Care Provider] - - Patient Instructions Printed Discharge Instructions: DI for Laceration Repair Additional Instructions: please remove the sutures in 7 days after placement. please return to the emergency department if you have fevers, chills, worsening mental status, and headaches. please follow up with your primary medical doctor in 1 week after discharge for follow up care and management. thank you,. - Post Discharge Activity
[2018-10-18 09:57] LABS: BASO % 0.6 % (0-2.0); EOS % 0.7 % (0-4.5); HEMOGLOBIN 9.1 GM/dL (10.7-15.3); LYMPH % 11.4 % (8-40); MCH 29.7 pg (25.7-33.7); MCHC 31.6 g/dl (32.0-36.0); MEAN PLT VOLUME 8.2 fl (7.5-11.1); MONO % 4.4 % (3.8-10.2); NEUT % 82.9 % (42.8-82.8); PLATELET COUNT 266 K/MM3 (134-434); RBC 3.08 M/mm3 (3.60-5.2); RDW 16.6 % (11.6-15.6); WHITE BLOOD COUNT 13.2 K/mm3 (4.0-10.0)
[2018-10-18 10:12] LABS: INR 0.97 (0.83-1.09); PROTHROMBIN TIME (PATIENT) 11.5 SEC (9.7-13.0)
[2018-10-18 10:15] LABS: ACTIVATED PTT 22.1 SECONDS (25.2-36.5)
[2018-10-18 10:27] LABS: ALBUMIN 2.3 g/dl (3.4-5.0); ALK PHOS 80 U/L (45-117); ANION GAP 4 MMOL/L (8-16); BILIRUBIN,TOTAL 0.3 mg/dL (0.2-1); BLOOD UREA NITROGEN 56 mg/dL (7-18); CALCIUM 9.4 mg/dL (8.5-10.1); CHLORIDE 110 mmol/L (98-107); CO2 29 mmol/L (21-32); CREATININE 1.2 mg/dL (0.55-1.3); GLUCOSE,RANDOM 70 mg/dL (74-106); POTASSIUM 4.4 mmol/L (3.5-5.1); SGOT/AST 20 U/L (15-37); SGPT/ALT 8 U/L (13-61); SODIUM 143 mmol/L (136-145)
--- NOTE | 2018-10-18 11:17 | PDOC ---
Attending Attestation - Resident Resident Name: Richard Cuevas - ED Attending Attestation I have performed the following: I have examined & evaluated the patient, The case was reviewed & discussed with the resident, I agree w/resident's findings & plan - HPI HPI: 10/18/18 11:10 77-year-old female with history of dementia, diabetes, hypertension, nonambulatory at baseline, presents from alf after fall from bed this morning. Unwitnessed, patient states she rolled out of bed accidentally and onto the ground, striking her left head. Denies any loss of consciousness, denies any generalized headache/vision change/speech change/focal deficit, has no other pain complaints. Per alf records, patient is DNR/DNI/DNH, they are requesting trauma workup and laceration repair and return to alf. - Physicial Exam PE: 10/18/18 11:11 A 3 cm V-shaped laceration to the lateral left eyebrow No focal bony deformity or tenderness Slightly dysarthric speech but at baseline per patient No facial asymmetry or motor asymmetry Trauma exam is otherwise unremarkable, no focal bony tenderness or deformity - Medical Decision Making 10/18/18 11:12 77-year-old female with fall from bed at alf, trauma exam localized to the head, otherwise neurologically nonfocal. Patient with slightly slurred speech but this is her baseline, normally nonambulatory. Labs are within normal limits CT head shows no acute pathology, CT C-spine also within normal limits Laceration repair Chest x-ray, left hip/pelvis x-ray If above shows no acute abnormality, will return to alf as planned and as per her wishes. Heart Score/ECG Review #1 ECG reviewed & interpreted by me at: 09:52 General ECG Interpretation: Sinus Rhythm, Normal Rate (96), Normal Intervals ( qtc 457), No acute ischemic changes
[2018-10-18] MEDS ORDERED: ASPIRIN 81 MG CHEWABLE TABLETS ONE (15:00)
--- NOTE | 2018-10-19 15:03 | EKG ---
Test Reason : Blood Pressure : / mmHG Vent. Rate : 096 BPM Atrial Rate : 096 BPM P-R Int : 154 ms QRS Dur : 084 ms QT Int : 362 ms P-R-T Axes : 059 -02 047 degrees QTc Int : 457 ms NORMAL SINUS RHYTHM NORMAL ECG WHEN COMPARED WITH ECG OF 06-NOV-2017 12:05, NO SIGNIFICANT CHANGE WAS FOUND Confirmed by STEPHANIE ARCHER MD ([id number]) on 10/19/2018 3:02:37 PM Referred By: Confirmed By:STEPHANIE ARCHER MD
== END 2018-10-18 16:41 | disposition home or self-care (01) ==
LOC: JER 07:38
PROC: 0HQ1XZZ Repair Face Skin, External Approach (ICD-10-PCS; principal; 2018-10-18)
DX: S01.112A Laceration without foreign body of left eyelid and periocular area, initial encounter (principal); W06.XXXA Fall from bed, initial encounter; Y93.89 Activity, other specified; Y92.122 Bedroom in nursing home as the place of occurrence of the external cause; Y99.8 Other external cause status; I10 Essential (primary) hypertension; E78.5 Hyperlipidemia, unspecified; E78.00 Pure hypercholesterolemia, unspecified; E11.9 Type 2 diabetes mellitus without complications; Z79.4 Long term (current) use of insulin; Z79.84 Long term (current) use of oral hypoglycemic drugs; J44.9 Chronic obstructive pulmonary disease, unspecified; D64.9 Anemia, unspecified; G40.909 Epilepsy, unspecified, not intractable, without status epilepticus; F20.9 Schizophrenia, unspecified; F03.90 Unspecified dementia, unspecified severity, without behavioral disturbance, psychotic disturbance, mood disturbance, and anxiety
CPT/HCPCS: 36415; 70450-TC; 71045-TC-FY; 72125-TC; 73523-TC-FY; 80053; 82550; 82553; 84484; 85025; 85610; 85730; 93005; 93010; 99283-25